=== PATIENT | male | born 1950 | race Two or more races ===

== ENCOUNTER 2018-08-06 12:45 | Inpatient (IN) | payer OTHER ==
[2018-08-06 18:40] VITALS: BMI 25.4
--- NOTE | 2018-08-06 18:48 | HP ---
"CIWA Score Nausea/Vomitin Muscle Tremors: 3 (Hand tremors felt and visible) Anxiety: 3 Agitation: 3 Paroxysmal Sweats: 3 (Increased facial moisture) Orientation: 0-Oriented Tacttile Disturbances: 0-None Auditory Disturbances: 0-None Visual Disturbances: 0-None Headache: 0-None Present CIWA-Ar Total Score: 15 - Admission Criteria [facility] Guidelines: Admission for Medically Managed Detox: Requires at least one of the followin. CIWA greater than 12 2. Seizures within the past 24 hours 3. Delirium tremens within the past 24 hours 4. Hallucinations within the past 24 hours 5. Acute intervention needed for co occurring medical disorder 6. Acute intervention needed for co occurring psychiatric disorder 7. Severe withdrawal that cannot be handled at a lower level of care (continued vomiting, continued diarrhea, abnormal vital signs) requiring intravenous medication and/or fluids 8. Patient presents the following: CIWA greater than 12 Admission Criteria Met: Admission criteria met Admission ROS S - [facility] Chief Complaint: I'm having alcohol withdrawal. Allergies/Adverse Reactions: Allergies Allergy/AdvReac Type Severity Reaction Status Date / Time No Known Allergies Allergy Verified 07/22/11 21:50 History of Present Illness: Here for alcohol detox. Came in w/ a KARINA of 0.220. Monitored in the [facility] and given water and KARINA is now 0.140. Denies hx seizures. States may have 2 blackouts years ago. States occ episodes of depression. Denies thoughts of harming self or others. Denies HTN or other significant PMH. 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 States doctors said he must use clotrimazole cream BID on feet. Psych: Talks to self but denies currently hearing voices. Is able to focus and have a conversation, but then has a flight of ideas/shifts in topics. Search Terms: Matthew Thorpe, 1950 Search Date: 08/06/2018 06:51:15 PM The Drug Utilization Report below displays all of the controlled substance prescriptions, if any, that your patient has filled in the last twelve months. The information displayed on this report is compiled from pharmacy submissions to the Department, and accurately reflects the information as submitted by the pharmacies. This report was requested by: Scarlet Trujillo | Reference #: [id number] There are no results for the search terms that you entered. Exam Limitations: No Limitations - Ebola screening Have you traveled outside of the country in the last 21 days: No (N) Have you had contact with anyone from an Ebola affected area: No Have you been sick,other than usual withdrawal symptoms: No Do you have a fever: No - Review of Systems EENT: reports: No Symptoms Reported Respiratory: reports: No Symptoms reported : reports: No Symptoms Reported Musculoskeletal: reports: No Symptoms Reported Integumentary: reports: Other (Missing toe (L) foot. States uses clotrimazole cream on feet twice a day.) Endocrine: reports: No Symptoms Reported Hematology: reports: No Symptoms Reported Psychiatric: reports: Judgement Intact, Orientated x3, Anxious, other (Talking to self.) Patient History - Patient Medical History Hx Anemia: No Hx Asthma: No Hx Chronic Obstructive Pulmonary Disease (COPD): No Hx Cancer: No Hx Cardiac Disorders: No Hx Congestive Heart Failure: No Hx Hypertension: No Hx Hypercholesterolemia: No Hx Pacemaker: No HX Cerebrovascular Accident: No Hx Seizures: No Hx Dementia: No Hx Diabetes: No Hx Gastrointestinal Disorders: No Hx Liver Disease: No Hx Genitourinary Disorders: No Hx Sexually Transmitted Disorders: No Hx Renal Disease (ESRD): No Hx Thyroid Disease: No Hx Human Immunodeficiency Virus (HIV): No Hx Hepatitis C: No Hx Depression: Yes (no meds) Hx Suicide Attempt: No Hx Schizophrenia: No - Patient Surgical History Past Surgical History: No Hx Neurologic Surgery: No Hx Cataract Extraction: No Hx Cardiac Surgery: No Hx Lung Surgery: No Hx Breast Surgery: No Hx Breast Biopsy: No Hx Abdominal Surgery: No Hx Appendectomy: No Hx Cholecystectomy: No Hx Genitourinary Surgery: No Hx Section: No Hx Orthopedic Surgery: No (incision and drainage of abscess of) Other Surgical History: left foot 15 years ago Anesthesia Reaction: No - PPD History Previous Implant?: Yes Documented Results: Negative w/o proof Implanted On Prior [facility] Admission?: Yes Date: 07/24/11 Results: Negative PPD to be Administered?: Yes - Smoking Cessation Smoking history: Current every day smoker Have you smoked in the past 12 months: Yes Aproximately how many cigarettes per day: 14 Hx Chewing Tobacco Use: No Initiated information on smoking cessation: Yes 'Breaking Loose' booklet given: 08/06/18 - Substance & Tx. History Hx Alcohol Use: Yes Hx Substance Use: Yes Substance Use Type: Alcohol Hx Substance Use Treatment: Yes (detox, rehab) - Substances Abused Alcohol Route: Oral Frequency: Daily Amount used: 3 PINTS VODKA + 6 PACK BEER Age of first use: 39 Date of Last Use: 08/06/18 Admission Physical Exam [facility] - Vital Signs Vital Signs: Vital Signs - 24 hr 08/06/18 18:34 Temperature 98.6 F Pulse Rate 92 H Respiratory 18 Rate Blood Pressure 118/102 H - Physical General Appearance: Yes: Alcohol on Breath, Intoxicated (Came in w/ KARINA 0.220 monitored and now KARINA), Irritable, Sweating (Increased facial moisture), Anxious HEENTM: Yes: EOMI (Jerking movement of eyes upon (L) lateral gaze), Hearing grossly Normal Respiratory: Yes: Lungs Clear, Normal Breath Sounds, No Respiratory Distress Neck: Yes: No masses,lesions,Nodules, Supple Breast: Yes: Breast Exam Deferred Cardiology: Yes: Regular Rhythm, Regular Rate, S1, S2 Abdominal: Yes: Non Tender, Soft, Increased Bowel Sounds Genitourinary: Yes: Within Normal Limits Back: Yes: Normal Inspection Musculoskeletal: Yes: full range of Motion, Gait Steady, Other ((L) foot 4th toe absent. 5th toe in shifted position.) Extremities: Yes: Normal Capillary Refill (Pedal and radial pulses present.), Normal Range of Motion, Non-Tender, Tremors (Tremors felt and slightly visible) Neurological: Yes: turning lathe tender II-XII NML intact (Jerking movement of eyes upon (L) lateral gaze), Fully Oriented, Alert, Motor Strength 5/5, Normal Mood/Affect Integumentary: Yes: Normal Color, Dry, Warm, Moist (Feet w/ increased moisture.) , Other (Dry thickened, spotted, darker, skin on dorsum of feet.) Lymphatic: Yes: Within Normal Limits - Diagnostic (1) Alcohol dependence with uncomplicated withdrawal Current Visit: Yes Status: Acute (2) Blood pressure elevated without history of HTN Current Visit: Yes Status: Acute (3) Acquired absence of other toe(s), unspecified side Current Visit: Yes Status: Chronic Comment: Missing (L) 4th toe. 5th toe in adjusted position. (4) Tinea pedis Current Visit: Yes Status: Chronic Qualifiers: Laterality: bilateral Qualified Code(s): B35.3 - Tinea pedis (5) Nicotine dependence, uncomplicated Current Visit: Yes Status: Chronic Qualifiers: Nicotine product type: cigarettes Qualified Code(s): F17.210 - Nicotine dependence, cigarettes, uncomplicated Cleared for Admission [facility] - Detox or Rehab [facility] Level of Care: Medically Managed Detox Regimen/Protocol: Librium S Breath Alcohol Content Breath Alcohol Content: 0.220 Urine Drug Screen - Results Drug Screen Negative: Yes"
[2018-08-06] MEDS ORDERED: LOPERAMIDE HCL 2 MG CAPSULE PO PRN (21:32)
[2018-08-06] MEDS ORDERED: P-EPHED 60MG/TRIPROLIDI 2.5MG TABLET PO PRN (21:32)
[2018-08-06] MEDS ORDERED: MAG HYDROX/AL HYDROX/SIMETH 30 ML UNIT-DOSE CUP PO PRN (21:32)
[2018-08-06] MEDS ORDERED: IBUPROFEN 400 MG TABLET (FP) PO PRN (21:32)
[2018-08-06] MEDS ORDERED: guaiFENesin/D-METHORPHAN HB 10 ML UNIT-DOSE CUPS PO PRN (21:32)
[2018-08-06] MEDS ORDERED: MENTHOL/PHENOL 1 EACH UD MM PRN (21:32)
[2018-08-06] MEDS ORDERED: chlordiazePOXIDE HCL 25 MG CAPSULE PO PRN (21:32)
[2018-08-06] MEDS ORDERED: ACETAMINOPHEN 325 MG TABLET (FP) PO PRN (21:32)
[2018-08-06] MEDS ORDERED: MAGNESIUM CITRATE 300 ML BOTTLE PO PRN (21:32)
[2018-08-06] MEDS ORDERED: MAGNESIUM HYDROX 2400MG/30ML ORAL SUSPENSION 30 ML CUP PO PRN (21:32)
[2018-08-06] MEDS ORDERED: MELATONIN 5 MG TABLETS PO PRN (22:00)
[2018-08-06] MEDS: chlordiazePOXIDE HCL 25 MG CAPSULE PO SCH (22:19)
[2018-08-06] MEDS: THIAMINE HCL 100 MG TABLET (FP) PO SCH (22:19)
[2018-08-06] MEDS: CLOTRIMAZOLE 1% CREAM 15 GM TUBE TP SCH (23:03)
[2018-08-07] MEDS: chlordiazePOXIDE HCL 25 MG CAPSULE PO SCH ×4 (05:48→22:22)
[2018-08-07 09:42] LABS: HEMATOCRIT 39.3 % (35.4-49); HEMOGLOBIN 13.7 GM/dL (11.7-16.9); MCH 34.1 pg (25.7-33.7); MCHC 34.8 g/dl (32.0-35.9); MEAN CELL VOLUME 97.9 fl (80-96); MEAN PLT VOLUME 7.9 fl (7.5-11.1); PLATELET COUNT 134 K/MM3 (134-434); RBC 4.02 M/mm3 (4.00-5.60); RDW 13.5 % (11.9-15.9); WHITE BLOOD COUNT 4.3 K/mm3 (4.0-10.0)
--- NOTE | 2018-08-07 09:59 | PN ---
S CIWA - CIWA Score Nausea/Vomitin-Mild Nausea/No Vomiting Muscle Tremors: 3 Anxiety: 3 Agitation: 3 Paroxysmal Sweats: 1-Minimal Palms Moist Orientation: 0-Oriented Tacttile Disturbances: 1-Very Mild Itch/Numbness Auditory Disturbances: 0-None Visual Disturbances: 0-None Headache: 2-Mild CIWA-Ar Total Score: 14 BHS Progress Note (SOAP) Subjective: tremor sweating itchy skin Objective: 08/07/18 09:59 Vital Signs Temperature 97.6 F 08/07/18 09:24 Pulse Rate 104 H 08/07/18 09:24 Respiratory Rate 18 08/07/18 09:24 Blood Pressure 142/80 08/07/18 09:24 O2 Sat by Pulse Oximetry (%) Laboratory Last Values WBC 4.3 K/mm3 (4.0-10.0) 08/07/18 07:00 RBC 4.02 M/mm3 (4.00-5.60) 08/07/18 07:00 Hgb 13.7 GM/dL (11.7-16.9) 08/07/18 07:00 Hct 39.3 % (35.4-49) 08/07/18 07:00 MCV 97.9 fl (80-96) H 08/07/18 07:00 MCH 34.1 pg (25.7-33.7) H 08/07/18 07:00 MCHC 34.8 g/dl (32.0-35.9) 08/07/18 07:00 RDW 13.5 % (11.9-15.9) 08/07/18 07:00 Plt Count 134 K/MM3 (134-434) 08/07/18 07:00 MPV 7.9 fl (7.5-11.1) D 08/07/18 07:00 lab noted Assessment: 08/07/18 09:59 withdrawal sx Plan: continue detox
[2018-08-07 10:05] LABS: ALBUMIN 3.7 g/dl (3.4-5.0); ALK PHOS 110 U/L (45-117); ANION GAP 9 MMOL/L (8-16); BILIRUBIN,TOTAL 0.9 mg/dL (0.2-1); BLOOD UREA NITROGEN 20 mg/dL (7-18); CALCIUM 8.7 mg/dL (8.5-10.1); CHLORIDE 105 mmol/L (98-107); CO2 27 mmol/L (21-32); GLUCOSE,RANDOM 122 mg/dL (74-106); POTASSIUM 3.6 mmol/L (3.5-5.1); SGOT/AST 113 U/L (15-37); SGPT/ALT 114 U/L (13-61); SODIUM 140 mmol/L (136-145); TOT PROT 7.1 g/dl (6.4-8.2)
[2018-08-07] MEDS: PRENATAL VITAMINS W/ FOLIC ACID TABLET (FP) PO SCH (10:09)
--- NOTE | 2018-08-07 11:25 | CONSULT ---
[facility] Psychiatric Consult - Data Date of interview: 08/07/18 Admission source: [facility] Identifying data: This is a 68 years old male, single father of one, ambulating with cane, living [facility] prison, on SSI support, with long history of chronic Alcoholism, reports Alcohol withdrawal symptoms and seeking detox Substance Abuse History: Smoking history: Current every day smoker. Have you smoked in the past 12 months: Yes. Aproximately how many cigarettes per day: 14. Hx Chewing Tobacco Use: No. Initiated information on smoking cessation: Yes. 'Breaking Loose' booklet given: 08/06/18. - Substance & Tx. History. Hx Alcohol Use: Yes. Hx Substance Use: Yes. Substance Use Type: Alcohol. Hx Substance Use Treatment: Yes (detox, rehab). - Substances Abused. Alcohol. Route: Oral. Frequency: Daily. Amount used: 3 PINTS VODKA + 6 PACK BEER. Age of first use: 39. Date of Last Use: 08/06/18 Medical History: HTN, S/P right foot surgery Psychiatric History: Patient reports history of depression and anxiety, reports outpatient management long time ago, currently he is not taking psychiatric medications, reports no psychiatric hospitalization history, no suicidal, homicidal history as well. Physical/Sexual Abuse/Trauma History: Denies Additional Comment: Observation. Detox Unit Care Protocol Mental Status Exam - Mental Status Exam Alert and Oriented to: Person Cognitive Function: Fair Patient Appearance: Well Groomed Mood: Apprehensive Affect: Mood Congruent Patient Behavior: Cooperative Speech Pattern: Appropriate Voice Loudness: Mildly Soft/Quiet Thought Process: Goal Oriented Thought Disorder: Being Controlled Hallucinations: Denies Suicidal Ideation: Denies Homicidal Ideation: Denies Insight/Judgement: Fair Sleep: Difficulty falling asleep Appetite: Weight gain Muscle strength/Tone: Mild Hypotonicity Gait/Station: Deferred Additional Comments: Observation. Detox Unit Care Protocol Psychiatric Findings - Problem List ([place] 1, 2,3) (1) Status post right foot surgery Current Visit: Yes Status: Acute (2) Alcohol dependence with uncomplicated withdrawal Current Visit: Yes Status: Acute (3) Blood pressure elevated without history of HTN Current Visit: Yes Status: Acute (4) Acquired absence of other toe(s), unspecified side Current Visit: Yes Status: Chronic Comment: Missing (L) 4th toe. 5th toe in adjusted position. (5) Nicotine dependence, uncomplicated Current Visit: Yes Status: Chronic Qualifiers: Nicotine product type: cigarettes Qualified Code(s): F17.210 - Nicotine dependence, cigarettes, uncomplicated - Initial Treatment Plan Initial Treatment Plan: Observation. Detox Unit Care Protocol
[2018-08-07] MEDS: MINERAL OIL/PETROLAT/WATER TOPICAL CREAM 113 GM JAR TP SCH (12:29)
[2018-08-07] MEDS: CLOTRIMAZOLE 1% CREAM 15 GM TUBE TP SCH ×2 (12:29→22:21)
[2018-08-07] MEDS: THIAMINE HCL 100 MG TABLET (FP) PO SCH (22:21)
[2018-08-08] MEDS: chlordiazePOXIDE HCL 25 MG CAPSULE PO SCH ×3 (05:20→17:19)
--- NOTE | 2018-08-08 09:39 | PN ---
S CIWA - CIWA Score Nausea/Vomitin-Mild Nausea/No Vomiting Muscle Tremors: 3 Anxiety: 2 Agitation: 2 Paroxysmal Sweats: 1-Minimal Palms Moist Orientation: 0-Oriented Tacttile Disturbances: 0-None Auditory Disturbances: 0-None Visual Disturbances: 0-None Headache: 1-Very Mild CIWA-Ar Total Score: 10 S Progress Note (SOAP) Subjective: tremor sweating restlessness anxiety Objective: 08/08/18 09:35 Vital Signs Temperature 96.5 F L 08/08/18 09:06 Pulse Rate 62 08/08/18 09:06 Respiratory Rate 18 08/08/18 09:06 Blood Pressure 123/77 08/08/18 09:06 O2 Sat by Pulse Oximetry (%) Laboratory Last Values WBC 4.3 K/mm3 (4.0-10.0) 08/07/18 07:00 RBC 4.02 M/mm3 (4.00-5.60) 08/07/18 07:00 Hgb 13.7 GM/dL (11.7-16.9) 08/07/18 07:00 Hct 39.3 % (35.4-49) 08/07/18 07:00 MCV 97.9 fl (80-96) H 08/07/18 07:00 MCH 34.1 pg (25.7-33.7) H 08/07/18 07:00 MCHC 34.8 g/dl (32.0-35.9) 08/07/18 07:00 RDW 13.5 % (11.9-15.9) 08/07/18 07:00 Plt Count 134 K/MM3 (134-434) 08/07/18 07:00 MPV 7.9 fl (7.5-11.1) D 08/07/18 07:00 Sodium 140 mmol/L (136-145) 08/07/18 07:00 Potassium 3.6 mmol/L (3.5-5.1) 08/07/18 07:00 Chloride 105 mmol/L (98-107) 08/07/18 07:00 Carbon Dioxide 27 mmol/L (21-32) 08/07/18 07:00 Anion Gap 9 MMOL/L (8-16) 08/07/18 07:00 BUN 20 mg/dL (7-18) H 08/07/18 07:00 Creatinine 1.0 mg/dL (0.55-1.3) 08/07/18 07:00 Creat Clearance w eGFR > 60 (>60) 08/07/18 07:00 Random Glucose 122 mg/dL (74-106) H 08/07/18 07:00 Calcium 8.7 mg/dL (8.5-10.1) 08/07/18 07:00 Total Bilirubin 0.9 mg/dL (0.2-1) 08/07/18 07:00 AST 113 U/L (15-37) H 08/07/18 07:00 ALT 114 U/L (13-61) H 08/07/18 07:00 Alkaline Phosphatase 110 U/L (45-117) 08/07/18 07:00 Total Protein 7.1 g/dl (6.4-8.2) 08/07/18 07:00 Albumin 3.7 g/dl (3.4-5.0) 08/07/18 07:00 RPR Titer Nonreactive (NONREACTIVE) 08/07/18 07:00 lab noted repeat ast Assessment: 08/08/18 09:39 withdrawal sx Plan: continue detox
[2018-08-08] MEDS: MINERAL OIL/PETROLAT/WATER TOPICAL CREAM 113 GM JAR TP SCH (10:14)
[2018-08-08] MEDS: PRENATAL VITAMINS W/ FOLIC ACID TABLET (FP) PO SCH (10:14)
[2018-08-08] MEDS: CLOTRIMAZOLE 1% CREAM 15 GM TUBE TP SCH ×2 (10:14→22:32)
[2018-08-08] MEDS: THIAMINE HCL 100 MG TABLET (FP) PO SCH (22:28)
[2018-08-08] MEDS: chlordiazePOXIDE 5 MG CAPSULE PO SCH (22:28)
[2018-08-09] MEDS: chlordiazePOXIDE 5 MG CAPSULE PO SCH ×3 (05:15→17:40)
[2018-08-09] MEDS: PRENATAL VITAMINS W/ FOLIC ACID TABLET (FP) PO SCH (10:16)
[2018-08-09] MEDS: CLOTRIMAZOLE 1% CREAM 15 GM TUBE TP SCH ×2 (10:16→22:25)
[2018-08-09] MEDS: MINERAL OIL/PETROLAT/WATER TOPICAL CREAM 113 GM JAR TP SCH (10:16)
--- NOTE | 2018-08-09 10:39 | PN ---
[facility] Progress Note (SOAP) Subjective: feeling better less tremor mild sweating discuss aftercare with staff social with peers in day room Objective: 08/09/18 10:38 Vital Signs Temperature 97.6 F 08/09/18 09:13 Pulse Rate 60 08/09/18 09:13 Respiratory Rate 18 08/09/18 09:13 Blood Pressure 107/70 08/09/18 09:13 O2 Sat by Pulse Oximetry (%) Laboratory Last Values WBC 4.3 K/mm3 (4.0-10.0) 08/07/18 07:00 RBC 4.02 M/mm3 (4.00-5.60) 08/07/18 07:00 Hgb 13.7 GM/dL (11.7-16.9) 08/07/18 07:00 Hct 39.3 % (35.4-49) 08/07/18 07:00 MCV 97.9 fl (80-96) H 08/07/18 07:00 MCH 34.1 pg (25.7-33.7) H 08/07/18 07:00 MCHC 34.8 g/dl (32.0-35.9) 08/07/18 07:00 RDW 13.5 % (11.9-15.9) 08/07/18 07:00 Plt Count 134 K/MM3 (134-434) 08/07/18 07:00 MPV 7.9 fl (7.5-11.1) D 08/07/18 07:00 Sodium 140 mmol/L (136-145) 08/07/18 07:00 Potassium 3.6 mmol/L (3.5-5.1) 08/07/18 07:00 Chloride 105 mmol/L (98-107) 08/07/18 07:00 Carbon Dioxide 27 mmol/L (21-32) 08/07/18 07:00 Anion Gap 9 MMOL/L (8-16) 08/07/18 07:00 BUN 20 mg/dL (7-18) H 08/07/18 07:00 Creatinine 1.0 mg/dL (0.55-1.3) 08/07/18 07:00 Creat Clearance w eGFR > 60 (>60) 08/07/18 07:00 Random Glucose 122 mg/dL (74-106) H 08/07/18 07:00 Calcium 8.7 mg/dL (8.5-10.1) 08/07/18 07:00 Total Bilirubin 0.9 mg/dL (0.2-1) 08/07/18 07:00 AST 113 U/L (15-37) H 08/07/18 07:00 ALT 114 U/L (13-61) H 08/07/18 07:00 Alkaline Phosphatase 110 U/L (45-117) 08/07/18 07:00 Total Protein 7.1 g/dl (6.4-8.2) 08/07/18 07:00 Albumin 3.7 g/dl (3.4-5.0) 08/07/18 07:00 RPR Titer Nonreactive (NONREACTIVE) 08/07/18 07:00 lab noted repeat ast pending 08/09/18 10:40 Assessment: 08/09/18 10:41 mild withdrawal sx Plan: continue detox
[2018-08-09 12:54] LABS: URINE APPEARANCE CLEAR; URINE BILIRUBIN NEGATIVE (<2.0 mg/dL); URINE COLOR LTYELLOW; URINE GLUCOSE (UA) NEGATIVE (NEGATIVE); URINE KETONE NEGATIVE (NEGATIVE); URINE LEUK ESTERASE NEGATIVE (NEGATIVE); URINE NITRITE NEGATIVE (NEGATIVE); URINE PROTEIN NEGATIVE (NEGATIVE); URINE UROBILINOGEN NEGATIVE mg/dL (0.2-1.0)
[2018-08-09] MEDS: chlordiazePOXIDE HCL 10 MG CAPSULE PO SCH (22:25)
[2018-08-09] MEDS: THIAMINE HCL 100 MG TABLET (FP) PO SCH (22:25)
[2018-08-10] MEDS: chlordiazePOXIDE HCL 10 MG CAPSULE PO SCH (06:13)
[2018-08-10 06:32] VITALS: BP 106/77; PULSE 77; TEMP 96.4
--- NOTE | 2018-08-10 09:24 | DS ---
[facility] Detox Discharge Summary Admission Date: 08/06/18 Discharge Date: 08/10/18 - History Present History: Alcohol Dependence Additional Comments: 68 years old male admitted on 08/06/18 for alcohol withdrawal stabilization completed detox regimen aftercare [facility] [place] - Physical Exam Results Vital Signs: Vital Signs Temperature 96.4 F L 08/10/18 06:31 Pulse Rate 77 08/10/18 06:31 Respiratory Rate 18 08/10/18 06:31 Blood Pressure 106/77 08/10/18 06:31 O2 Sat by Pulse Oximetry (%) Pertinent Admission Physical Exam Findings: alcohol withdrawal sx Laboratory Last Values WBC 4.3 K/mm3 (4.0-10.0) 08/07/18 07:00 RBC 4.02 M/mm3 (4.00-5.60) 08/07/18 07:00 Hgb 13.7 GM/dL (11.7-16.9) 08/07/18 07:00 Hct 39.3 % (35.4-49) 08/07/18 07:00 MCV 97.9 fl (80-96) H 08/07/18 07:00 MCH 34.1 pg (25.7-33.7) H 08/07/18 07:00 MCHC 34.8 g/dl (32.0-35.9) 08/07/18 07:00 RDW 13.5 % (11.9-15.9) 08/07/18 07:00 Plt Count 134 K/MM3 (134-434) 08/07/18 07:00 MPV 7.9 fl (7.5-11.1) D 08/07/18 07:00 Sodium 140 mmol/L (136-145) 08/07/18 07:00 Potassium 3.6 mmol/L (3.5-5.1) 08/07/18 07:00 Chloride 105 mmol/L (98-107) 08/07/18 07:00 Carbon Dioxide 27 mmol/L (21-32) 08/07/18 07:00 Anion Gap 9 MMOL/L (8-16) 08/07/18 07:00 BUN 20 mg/dL (7-18) H 08/07/18 07:00 Creatinine 1.0 mg/dL (0.55-1.3) 08/07/18 07:00 Creat Clearance w eGFR > 60 (>60) 08/07/18 07:00 Random Glucose 122 mg/dL (74-106) H 08/07/18 07:00 Calcium 8.7 mg/dL (8.5-10.1) 08/07/18 07:00 Total Bilirubin 0.9 mg/dL (0.2-1) 08/07/18 07:00 AST 121 U/L (15-37) H 08/09/18 07:00 ALT 114 U/L (13-61) H 08/07/18 07:00 Alkaline Phosphatase 110 U/L (45-117) 08/07/18 07:00 Total Protein 7.1 g/dl (6.4-8.2) 08/07/18 07:00 Albumin 3.7 g/dl (3.4-5.0) 08/07/18 07:00 Urine Color Ltyellow 08/09/18 07:50 Urine Appearance Clear 08/09/18 07:50 Urine pH 5.0 (5.0-8.0) 08/09/18 07:50 Ur Specific [place] 1.014 (1.010-1.035) 08/09/18 07:50 Urine Protein Negative (NEGATIVE) 08/09/18 07:50 Urine Glucose (UA) Negative (NEGATIVE) 08/09/18 07:50 Urine Ketones Negative (NEGATIVE) 08/09/18 07:50 Urine Blood Negative (NEGATIVE) 08/09/18 07:50 Urine Nitrite Negative (NEGATIVE) 08/09/18 07:50 Urine Bilirubin Negative (<2.0 mg/dL) 08/09/18 07:50 Urine Urobilinogen Negative mg/dL (0.2-1.0) 08/09/18 07:50 Ur Leukocyte Esterase Negative (NEGATIVE) 08/09/18 07:50 RPR Titer Nonreactive (NONREACTIVE) 08/07/18 07:00 lab noted - Treatment Hospital Course: Detox Protocol Followed, Detoxed Safely, Responded well, Discharged Condition Good, Rehab Referral Accepted Patient has Accepted a Rehab Referral to: [facility] [place] - Medication Discharge Medications: Ambulatory Orders No Home Medications 12/25/11 - Diagnosis (1) Alcohol dependence with uncomplicated withdrawal Current Visit: Yes Status: Acute (2) Nicotine dependence, uncomplicated Current Visit: Yes Status: Acute Qualifiers: Nicotine product type: cigarettes Qualified Code(s): F17.210 - Nicotine dependence, cigarettes, uncomplicated - AMA Did Patient Leave Against Medical Advice: No
== END 2018-08-10 08:35 | disposition home or self-care (01) | DRG 775 ==
LOC: YASAS 12:45 → Y3N 20:11
PROVIDERS: ADMIT Neuromusculoskeletal Medicine & OMM; ATTEND Neuromusculoskeletal Medicine & OMM
PROC: HZ2ZZZZ Detoxification Services for Substance Abuse Treatment (ICD-10-PCS; principal; 2018-08-06)
DX: F10.230 Alcohol dependence with withdrawal, uncomplicated (principal); F17.210 Nicotine dependence, cigarettes, uncomplicated; R03.0 Elevated blood-pressure reading, without diagnosis of hypertension; B35.3 Tinea pedis; Z89.422 Acquired absence of other left toe(s)
CPT/HCPCS: 36415; 80053; 81003; 84450; 85027; 86593

== ENCOUNTER 2018-10-29 13:36 | Inpatient (IN) | payer OTHER ==
[2018-10-29 14:21] VITALS: BMI 25.7
--- NOTE | 2018-10-29 14:33 | HP ---
"CIWA Score Nausea/Vomitin Muscle Tremors: 4-Moderate,w/Arms Extend Anxiety: 3 Agitation: 4-Moderately Restless Paroxysmal Sweats: 3 (increased facial moisture) Orientation: 0-Oriented Tacttile Disturbances: 0-None Auditory Disturbances: 0-None Visual Disturbances: 0-None Headache: 0-None Present CIWA-Ar Total Score: 17 - Admission Criteria OASAS Guidelines: Admission for Medically Managed Detox: Requires at least one of the followin. CIWA greater than 12 2. Seizures within the past 24 hours 3. Delirium tremens within the past 24 hours 4. Hallucinations within the past 24 hours 5. Acute intervention needed for co occurring medical disorder 6. Acute intervention needed for co occurring psychiatric disorder 7. Severe withdrawal that cannot be handled at a lower level of care (continued vomiting, continued diarrhea, abnormal vital signs) requiring intravenous medication and/or fluids 8. Patient presents the following: CIWA greater than 12 Admission Criteria Met: Admission criteria met Admission ROS [facility] Chief Complaint: Here for alcohol withdrawal. Allergies/Adverse Reactions: Allergies Allergy/AdvReac Type Severity Reaction Status Date / Time No Known Allergies Allergy Verified 07/22/11 21:50 History of Present Illness: Here for alcohol detox. Last detox 07/2018. Came in w/ a KARINA of 0.220. Denies hx seizures. States may have 2 blackouts years ago. 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 Denies thoughts of harming self or others. Is able to focus and have a conversation, but then has scattered thoughts/ shifts in topics. Search Terms: Matthew Thorpe, 1950 Search Date: 10/29/2018 03:19:59 PM The Drug Utilization Report below displays all of the controlled substance prescriptions, if any, that your patient has filled in the last twelve months. The information displayed on this report is compiled from pharmacy submissions to the Department, and accurately reflects the information as submitted by the pharmacies. This report was requested by: Scarlet Trujillo | Reference #: [id number] There are no results for the search terms that you entered. Exam Limitations: No Limitations - Ebola screening Have you traveled outside of the country in the last 21 days: No (N) Have you had contact with anyone from an Ebola affected area: No Have you been sick,other than usual withdrawal symptoms: No (Denies recent measles exposure) Do you have a fever: No - Review of Systems Constitutional: Diaphoresis EENT: reports: Blurred Vision Respiratory: reports: No Symptoms reported Cardiac: reports: No Symptoms Reported GI: reports: Nausea : reports: No Symptoms Reported Musculoskeletal: reports: Back Pain (pain in mornings), Joint Pain (Knee pain in mornings), Other (Missing 4th toe (L) foot) Integumentary: reports: Rash (Chest) Neuro: reports: No Symptoms reported Endocrine: reports: No Symptoms Reported Hematology: reports: Other (Varicose veins, venous stasis) Psychiatric: reports: Judgement Intact, Orientated x3, Agitated, Anxious Patient History - Patient Medical History Hx Anemia: No Hx Asthma: No Hx Chronic Obstructive Pulmonary Disease (COPD): No Hx Cancer: No Hx Cardiac Disorders: No Hx Congestive Heart Failure: No Hx Hypertension: No Hx Hypercholesterolemia: No Hx Pacemaker: No HX Cerebrovascular Accident: No Hx Seizures: No Hx Dementia: No Hx Diabetes: No Hx Gastrointestinal Disorders: No Hx Liver Disease: No Hx Genitourinary Disorders: No Hx Sexually Transmitted Disorders: No Hx Renal Disease (ESRD): No Hx Thyroid Disease: No Hx Human Immunodeficiency Virus (HIV): No Hx Hepatitis C: No Hx Depression: Yes (no meds) Hx Suicide Attempt: No Hx Schizophrenia: No - Patient Surgical History Past Surgical History: No Hx Neurologic Surgery: No Hx Cataract Extraction: No Hx Cardiac Surgery: No Hx Lung Surgery: No Hx Breast Surgery: No Hx Breast Biopsy: No Hx Abdominal Surgery: No Hx Appendectomy: No Hx Cholecystectomy: No Hx Genitourinary Surgery: No Hx Section: No Hx Orthopedic Surgery: No (incision and drainage of abscess of) Other Surgical History: left foot 15 years ago Anesthesia Reaction: No - PPD History Previous Implant?: Yes Documented Results: Negative w/proof Implanted On Prior R Admission?: Yes Date: 08/08/18 Results: Negative PPD to be Administered?: No - Smoking Cessation Smoking history: Current every day smoker Have you smoked in the past 12 months: Yes Aproximately how many cigarettes per day: 15 Hx Chewing Tobacco Use: No Initiated information on smoking cessation: Yes 'Breaking Loose' booklet given: 10/29/18 - Substance & Tx. History Hx Alcohol Use: Yes Hx Substance Use: Yes Substance Use Type: Alcohol Hx Substance Use Treatment: Yes (detox, ) - Substances abused Alcohol Substance route: Oral Frequency: Daily Amount used: 20 beers and a pint of liquor Age of first use: 12 Date of last use: 10/29/18 Admission Physical Exam S - Vital Signs Vital Signs: Vital Signs - 24 hr 10/29/18 14:14 Temperature 98.6 F Pulse Rate 106 H Respiratory 18 Rate Blood Pressure 109/81 - Physical General Appearance: Yes: Nourished, Mild Distress, Tremorous, Sweating ( Increased facial moisture), Anxious HEENTM: Yes: EOMI, Hearing grossly Normal, Normocephalic, SILVIA, Pharynx Normal Respiratory: Yes: Lungs Clear, Normal Breath Sounds, No Respiratory Distress Neck: Yes: No masses,lesions,Nodules, Supple Breast: Yes: Breast Exam Deferred Cardiology: Yes: Regular Rhythm, Regular Rate Abdominal: Yes: Soft, Increased Bowel Sounds Genitourinary: Yes: Within Normal Limits Back: Yes: Normal Inspection Musculoskeletal: Yes: full range of Motion, Gait Steady Extremities: Yes: Delayed Capillary Refill (of toes), Amputation ((L) 4th toe), Other (Varicose veins w/ increased deep reddish/brownish/purplish evidence of stasis) 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 Pedal pulses (+)) Lymphatic: Yes: Within Normal Limits - Diagnostic (1) Varicose veins of bilateral lower extremities with other complications Current Visit: Yes Status: Chronic Comment: With venous stasis (2) Alcohol dependence with uncomplicated withdrawal Current Visit: Yes Status: Acute (3) Nicotine dependence, uncomplicated Current Visit: Yes Status: Chronic Qualifiers: Nicotine product type: cigarettes Qualified Code(s): F17.210 - Nicotine dependence, cigarettes, uncomplicated (4) Acquired absence of other toe(s), unspecified side Current Visit: Yes Status: Chronic Comment: Missing (L) 4th toe. 5th toe in adjusted position. (5) Tinea pedis Current Visit: Yes Status: Chronic Qualifiers: Laterality: bilateral Qualified Code(s): B35.3 - Tinea pedis (6) Dry skin Current Visit: Yes Status: Chronic Cleared for Admission [facility] - Detox or Rehab [facility] Level of Care: Medically Managed Detox Regimen/Protocol: Librium Claeared for Rehab Admission: No Inpatient Rehab Admission - Rehab Decision to Admit Inpatient rehab admission?: No"
[2018-10-29] MEDS ORDERED: BISMUTH SUBSALICYLATE 524 MG/30 ML UD PO PRN (15:21)
[2018-10-29] MEDS ORDERED: MELATONIN 5 MG TABLETS PO PRN (15:21)
[2018-10-29] MEDS ORDERED: MAGNESIUM CITRATE 300 ML BOTTLE PO PRN (15:21)
[2018-10-29] MEDS ORDERED: IBUPROFEN 400 MG TABLET (FP) PO PRN (15:21)
[2018-10-29] MEDS ORDERED: MAG HYDROX/AL HYDROX/SIMETH 30 ML UNIT-DOSE CUP PO PRN (15:21)
[2018-10-29] MEDS ORDERED: MAGNESIUM HYDROX 2400MG/30ML ORAL SUSPENSION 30 ML CUP PO PRN (15:21)
[2018-10-29] MEDS ORDERED: chlordiazePOXIDE HCL 25 MG CAPSULE PO PRN (15:21)
[2018-10-29] MEDS ORDERED: METHOCARBAMOL 500 MG TABLET PO PRN (15:21)
[2018-10-29] MEDS ORDERED: ACETAMINOPHEN 325 MG TABLET (FP) PO PRN ×2 (15:21)
[2018-10-29] MEDS ORDERED: NICOTINE POLACRILEX 2 MG GUM BUC PRN (15:21)
[2018-10-29] MEDS ORDERED: guaiFENesin 200 MG/10 ML 10 ML UNIT-DOSE CUPS PO PRN (15:21)
[2018-10-29] MEDS ORDERED: chlordiazePOXIDE HCL 25 MG CAPSULE PO ONE (15:21)
[2018-10-29] MEDS ORDERED: MENTHOL/PHENOL 1 EACH UD MM PRN (15:21)
[2018-10-29] MEDS ORDERED: AMMONIUM LACTATE 12% LOTION 225 GM BOTTLE TP PRN (15:24)
[2018-10-29 18:20] LABS: URINE APPEARANCE CLEAR; URINE BILIRUBIN NEGATIVE (NEGATIVE); URINE COLOR YELLOW; URINE GLUCOSE (UA) NEGATIVE (NEGATIVE); URINE KETONE NEGATIVE (NEGATIVE); URINE LEUK ESTERASE NEGATIVE (NEGATIVE); URINE NITRITE NEGATIVE (NEGATIVE); URINE PROTEIN NEGATIVE (NEGATIVE); URINE UROBILINOGEN 0.2 mg/dL (0.2-1.0)
[2018-10-29] MEDS: chlordiazePOXIDE HCL 25 MG CAPSULE PO SCH ×2 (20:25→22:51)
[2018-10-29] MEDS: THIAMINE HCL 100 MG TABLET (FP) PO SCH (22:51)
[2018-10-29] MEDS: CLOTRIMAZOLE 1% CREAM 15 GM TUBE TP SCH (22:53)
[2018-10-30] MEDS: chlordiazePOXIDE HCL 25 MG CAPSULE PO SCH ×4 (05:10→22:16)
[2018-10-30 09:41] LABS: HEMATOCRIT 42.9 % (35.4-49); MCH 33.3 pg (25.7-33.7); MCHC 34.9 g/dl (32.0-35.9); MEAN CELL VOLUME 95.4 fl (80-96); MEAN PLT VOLUME 8.7 fl (7.5-11.1); PLATELET COUNT 147 K/MM3 (134-434); RBC 4.49 M/mm3 (4.00-5.60); RDW 13.9 % (11.9-15.9); WHITE BLOOD COUNT 4.8 K/mm3 (4.0-10.0)
[2018-10-30 09:44] LABS: ALBUMIN 4.1 g/dl (3.4-5.0); ALK PHOS 142 U/L (45-117); ANION GAP 7 MMOL/L (8-16); BLOOD UREA NITROGEN 13 mg/dL (7-18); CALCIUM 9.5 mg/dL (8.5-10.1); CHLORIDE 104 mmol/L (98-107); CO2 30 mmol/L (21-32); CREATININE 0.8 mg/dL (0.55-1.3); GLUCOSE,RANDOM 128 mg/dL (74-106); POTASSIUM 4.2 mmol/L (3.5-5.1); SGOT/AST 108 U/L (15-37); SGPT/ALT 102 U/L (13-61); SODIUM 141 mmol/L (136-145)
--- NOTE | 2018-10-30 10:01 | EKG ---
Test Reason : Blood Pressure : / mmHG Vent. Rate : 089 BPM Atrial Rate : 089 BPM P-R Int : 176 ms QRS Dur : 090 ms QT Int : 388 ms P-R-T Axes : 011 040 037 degrees QTc Int : 472 ms NORMAL SINUS RHYTHM NORMAL ECG NO PREVIOUS ECGS AVAILABLE Confirmed by CYNTHIA FISHER MD ([id number]) on 10/30/2018 10:01:12 AM Referred By: INDRA GREEN Confirmed By:CYNTHIA FISHER MD
[2018-10-30] MEDS: NICOTINE 14 MG/24 HOURS TOPICAL PATCH TD SCH (10:19)
[2018-10-30] MEDS: CLOTRIMAZOLE 1% CREAM 15 GM TUBE TP SCH ×2 (10:19→22:18)
[2018-10-30] MEDS: PRENATAL VITAMINS W/ FOLIC ACID TABLET (FP) PO SCH (10:19)
--- NOTE | 2018-10-30 13:16 | PN ---
S CIWA - CIWA Score Nausea/Vomitin-No Nausea/No Vomiting Muscle Tremors: 4-Moderate,w/Arms Extend Anxiety: 2 Agitation: 0-Normal Activity Paroxysmal Sweats: 3 Orientation: 0-Oriented Tacttile Disturbances: 0-None Auditory Disturbances: 0-None Visual Disturbances: 0-None Headache: 0-None Present CIWA-Ar Total Score: 9 BHS Progress Note (SOAP) Subjective: patient c/o shakes, anxiety and sweating. Objective: 10/30/18 13:14 Vital Signs Temperature 97.3 F L 10/30/18 10:41 Pulse Rate 99 H 10/30/18 10:41 Respiratory Rate 18 10/30/18 10:41 Blood Pressure 117/95 10/30/18 10:41 O2 Sat by Pulse Oximetry (%) Laboratory Tests 10/29/18 10/30/18 10/30/18 17:30 07:45 07:45 WBC 4.8 RBC 4.49 Hgb 15.0 Hct 42.9 MCV 95.4 MCH 33.3 MCHC 34.9 RDW 13.9 Plt Count 147 MPV 8.7 D Sodium 141 Potassium 4.2 Chloride 104 Carbon Dioxide 30 Anion Gap 7 L BUN 13 Creatinine 0.8 Creat Clearance w eGFR 95.85 Random Glucose 128 H Calcium 9.5 Total Bilirubin 1.0 AST 108 H ALT 102 H Alkaline Phosphatase 142 H Total Protein 8.0 Albumin 4.1 Urine Color Yellow Urine Appearance Clear Urine pH 5.0 Ur Specific [place] 1.015 Urine Protein Negative Urine Glucose (UA) Negative Urine Ketones Negative Urine Blood Negative Urine Nitrite Negative Urine Bilirubin Negative Urine Urobilinogen 0.2 Ur Leukocyte Esterase Negative RPR Titer 10/30/18 07:45 WBC RBC Hgb Hct MCV MCH MCHC RDW Plt Count MPV Sodium Potassium Chloride Carbon Dioxide Anion Gap BUN Creatinine Creat Clearance w eGFR Random Glucose Calcium Total Bilirubin AST ALT Alkaline Phosphatase Total Protein Albumin Urine Color Urine Appearance Urine pH Ur Specific [place] Urine Protein Urine Glucose (UA) Urine Ketones Urine Blood Urine Nitrite Urine Bilirubin Urine Urobilinogen Ur Leukocyte Esterase RPR Titer Nonreactive pe: alert and oriented x 3 skin warm, facial moisture ext no swelling, + tremors amb ad becca mildly anxious Assessment: 10/30/18 13:15 withdrawal sx Plan: continue detox encourage oral fluids monitor clinically
[2018-10-30] MEDS: THIAMINE HCL 100 MG TABLET (FP) PO SCH (22:16)
[2018-10-31] MEDS: chlordiazePOXIDE HCL 25 MG CAPSULE PO SCH ×2 (06:07→10:23)
[2018-10-31] MEDS: CLOTRIMAZOLE 1% CREAM 15 GM TUBE TP SCH ×2 (10:22→22:09)
[2018-10-31] MEDS: PRENATAL VITAMINS W/ FOLIC ACID TABLET (FP) PO SCH (10:22)
[2018-10-31] MEDS: NICOTINE 14 MG/24 HOURS TOPICAL PATCH TD SCH (10:23)
--- NOTE | 2018-10-31 13:48 | PN ---
[facility] CIWA - CIWA Score Nausea/Vomitin-No Nausea/No Vomiting Muscle Tremors: 3 Anxiety: 2 Agitation: 2 Paroxysmal Sweats: 2 Orientation: 0-Oriented Tacttile Disturbances: 0-None Auditory Disturbances: 0-None Visual Disturbances: 0-None Headache: 0-None Present CIWA-Ar Total Score: 9 BHS Progress Note (SOAP) Subjective: agitation sweats interrupted sleep dry skin Objective: 10/31/18 13:46 Vital Signs Temperature 97.5 F L 10/31/18 13:15 Pulse Rate 67 10/31/18 13:15 Respiratory Rate 18 10/31/18 13:15 Blood Pressure 124/81 10/31/18 13:15 O2 Sat by Pulse Oximetry (%) Laboratory Tests 10/29/18 10/30/18 10/30/18 17:30 07:45 07:45 WBC 4.8 RBC 4.49 Hgb 15.0 Hct 42.9 MCV 95.4 MCH 33.3 MCHC 34.9 RDW 13.9 Plt Count 147 MPV 8.7 D Sodium 141 Potassium 4.2 Chloride 104 Carbon Dioxide 30 Anion Gap 7 L BUN 13 Creatinine 0.8 Creat Clearance w eGFR 95.85 Random Glucose 128 H Calcium 9.5 Total Bilirubin 1.0 AST 108 H ALT 102 H Alkaline Phosphatase 142 H Total Protein 8.0 Albumin 4.1 Urine Color Yellow Urine Appearance Clear Urine pH 5.0 Ur Specific [place] 1.015 Urine Protein Negative Urine Glucose (UA) Negative Urine Ketones Negative Urine Blood Negative Urine Nitrite Negative Urine Bilirubin Negative Urine Urobilinogen 0.2 Ur Leukocyte Esterase Negative RPR Titer 10/30/18 07:45 WBC RBC Hgb Hct MCV MCH MCHC RDW Plt Count MPV Sodium Potassium Chloride Carbon Dioxide Anion Gap BUN Creatinine Creat Clearance w eGFR Random Glucose Calcium Total Bilirubin AST ALT Alkaline Phosphatase Total Protein Albumin Urine Color Urine Appearance Urine pH Ur Specific [place] Urine Protein Urine Glucose (UA) Urine Ketones Urine Blood Urine Nitrite Urine Bilirubin Urine Urobilinogen Ur Leukocyte Esterase RPR Titer Nonreactive aaox3 ambulating no acute distress elevated ast/alt d/c tylenol repeat labs Assessment: 10/31/18 13:47 withdrawal sx Plan: continue detox increase fluids pending repeated labs
[2018-10-31] MEDS ORDERED: chlordiazePOXIDE HCL 10 MG CAPSULE PO PRN (17:00)
[2018-10-31] MEDS: chlordiazePOXIDE HCL 10 MG CAPSULE PO SCH ×2 (17:26→22:06)
[2018-10-31] MEDS: THIAMINE HCL 100 MG TABLET (FP) PO SCH (22:06)
[2018-11-01] MEDS: chlordiazePOXIDE HCL 10 MG CAPSULE PO SCH ×3 (05:46→17:49)
[2018-11-01] MEDS: PRENATAL VITAMINS W/ FOLIC ACID TABLET (FP) PO SCH (10:29)
[2018-11-01] MEDS: NICOTINE 14 MG/24 HOURS TOPICAL PATCH TD SCH (10:30)
[2018-11-01] MEDS: CLOTRIMAZOLE 1% CREAM 15 GM TUBE TP SCH ×2 (10:31→22:38)
--- NOTE | 2018-11-01 11:33 | PN ---
S CIWA - CIWA Score Nausea/Vomitin-No Nausea/No Vomiting Muscle Tremors: 2 Anxiety: 1-Mildly Anxious Agitation: 1-Slight > Activity Paroxysmal Sweats: No Perspiration Orientation: 0-Oriented Tacttile Disturbances: 0-None Auditory Disturbances: 0-None Visual Disturbances: 0-None Headache: 0-None Present CIWA-Ar Total Score: 4 BHS Progress Note (SOAP) Subjective: anxiety I need to leave tomorrow early to make it to my vascular doctor in the [place] Objective: 11/01/18 11:32 Vital Signs Temperature 97.9 F 11/01/18 10:32 Pulse Rate 66 11/01/18 10:32 Respiratory Rate 18 11/01/18 10:32 Blood Pressure 113/60 11/01/18 10:32 O2 Sat by Pulse Oximetry (%) Laboratory Tests 10/29/18 10/30/18 10/30/18 17:30 07:45 07:45 WBC 4.8 RBC 4.49 Hgb 15.0 Hct 42.9 MCV 95.4 MCH 33.3 MCHC 34.9 RDW 13.9 Plt Count 147 MPV 8.7 D Sodium 141 Potassium 4.2 Chloride 104 Carbon Dioxide 30 Anion Gap 7 L BUN 13 Creatinine 0.8 Creat Clearance w eGFR 95.85 Random Glucose 128 H Calcium 9.5 Total Bilirubin 1.0 AST 108 H ALT 102 H Alkaline Phosphatase 142 H Total Protein 8.0 Albumin 4.1 Urine Color Yellow Urine Appearance Clear Urine pH 5.0 Ur Specific [place] 1.015 Urine Protein Negative Urine Glucose (UA) Negative Urine Ketones Negative Urine Blood Negative Urine Nitrite Negative Urine Bilirubin Negative Urine Urobilinogen 0.2 Ur Leukocyte Esterase Negative RPR Titer 10/30/18 07:45 WBC RBC Hgb Hct MCV MCH MCHC RDW Plt Count MPV Sodium Potassium Chloride Carbon Dioxide Anion Gap BUN Creatinine Creat Clearance w eGFR Random Glucose Calcium Total Bilirubin AST ALT Alkaline Phosphatase Total Protein Albumin Urine Color Urine Appearance Urine pH Ur Specific [place] Urine Protein Urine Glucose (UA) Urine Ketones Urine Blood Urine Nitrite Urine Bilirubin Urine Urobilinogen Ur Leukocyte Esterase RPR Titer Nonreactive repeated liver enzymes pending aaox3 ambulating no acute distress Assessment: 11/01/18 11:33 withdrawal sx Plan: continue detox increase fluids d/c in am
[2018-11-01 12:11] LABS: SGOT/AST 90 U/L (15-37); SGPT/ALT 91 U/L (13-61)
[2018-11-01] MEDS ORDERED: LACTULOSE 20 GM/30 ML UDC (FOR ORAL USE ONLY) PO ONE (15:20)
--- NOTE | 2018-11-01 15:22 | PN ---
S Progress Note Note: pt was having moments of confusion and rambling on stories that were not pertinent of his purpose for detox. ammonia level ordered; result 49.10. laculose 20meq tid ordered x one day. will follow up and re-evaluate his mental status.
[2018-11-01] MEDS: LACTULOSE 20 GM/30 ML UDC (FOR ORAL USE ONLY) PO SCH (22:36)
[2018-11-01] MEDS: THIAMINE HCL 100 MG TABLET (FP) PO SCH (22:36)
[2018-11-02 06:16] VITALS: BP 142/87; PULSE 64; TEMP 98.6
[2018-11-02] MEDS: LACTULOSE 20 GM/30 ML UDC (FOR ORAL USE ONLY) PO SCH (07:23)
[2018-11-02] MEDS: chlordiazePOXIDE HCL 10 MG CAPSULE PO SCH (07:23)
--- NOTE | 2018-11-02 08:55 | DS ---
[facility] Detox Discharge Summary Admission Date: 10/29/18 Discharge Date: 11/02/18 - History Present History: Alcohol Dependence - Physical Exam Results Vital Signs: Vital Signs Temperature 98.6 F 11/02/18 06:16 Pulse Rate 64 11/02/18 06:16 Respiratory Rate 18 11/02/18 06:16 Blood Pressure 142/87 11/02/18 06:16 O2 Sat by Pulse Oximetry (%) - Treatment Hospital Course: Detox Protocol Followed, Detoxed Safely, Responded well, Discharged Condition Good, Rehab Referral Accepted - Medication Discharge Medications: Ambulatory Orders Ammonium Lactate Cream [Lac-Hydrin 12% *Cream*] 1 applic TP BID 10/29/18 Clotrimazole 1 applic TP BID 10/29/18 - AMA Did Patient Leave Against Medical Advice: No (pt declined; going to see his vascular MD)
== END 2018-11-02 07:48 | disposition home or self-care (01) | DRG 897 ==
LOC: YASAS 13:36 → Y6N 15:01
PROVIDERS: ADMIT Surgery; ATTEND Surgery
PROC: HZ2ZZZZ Detoxification Services for Substance Abuse Treatment (ICD-10-PCS; principal; 2018-10-29)
DX: F10.230 Alcohol dependence with withdrawal, uncomplicated (principal); F17.210 Nicotine dependence, cigarettes, uncomplicated; I83.93 Asymptomatic varicose veins of bilateral lower extremities; L98.8 Other specified disorders of the skin and subcutaneous tissue; B35.3 Tinea pedis; Z89.422 Acquired absence of other left toe(s)
CPT/HCPCS: 36415; 80053; 81003; 82140; 84450; 84460; 85027; 86593; 93005; 93010

== ENCOUNTER 2019-09-15 12:33 | Inpatient (IN) | payer OTHER ==
[2019-09-15 13:19] VITALS: BMI 25.8
--- NOTE | 2019-09-15 15:02 | BHS.RME ---
Substance Use & Tx History - Substance Use History Alcohol Substance amount: Bacardi/beer Frequency of use: Daily Substance route: Oral Date of Last Use: 09/15/19 - Last Treatment Date of last treatment: 10/29/2018 Treatment type: Medical Where was last treatment: Detox
--- NOTE | 2019-09-15 15:02 | HP ---
CIWA Score Nausea/Vomitin Muscle Tremors: 2 Anxiety: 1-Mildly Anxious Agitation: 1-Slight > Activity Paroxysmal Sweats: 1-Minimal Palms Moist Orientation: 1-Uncertain about Date Tacttile Disturbances: 2-Mild Itch/Numbness/Burn Auditory Disturbances: 1-Very Mild Visual Disturbances: 1-Very Mild Sensitivity Headache: 1-Very Mild CIWA-Ar Total Score: 13 - Admission Criteria OASAS Guidelines: Admission for Medically Managed Detox: Requires at least one of the followin. CIWA greater than 12 2. Seizures within the past 24 hours 3. Delirium tremens within the past 24 hours 4. Hallucinations within the past 24 hours 5. Acute intervention needed for co occurring medical disorder 6. Acute intervention needed for co occurring psychiatric disorder 7. Severe withdrawal that cannot be handled at a lower level of care (continued vomiting, continued diarrhea, abnormal vital signs) requiring intravenous medication and/or fluids 8. Patient presents the following: CIWA greater than 12 Admission Criteria Met: Admission criteria met Admitting History and Physical - Smoking History Smoking history: Current every day smoker Have you smoked in the past 12 months: Yes Aproximately how many cigarettes per day: 15 - Alcohol/Substance Use Hx Alcohol Use: Yes Admission ROS S - HPI Chief Complaint: I came here for detox Allergies/Adverse Reactions: Allergies Allergy/AdvReac Type Severity Reaction Status Date / Time No Known Allergies Allergy Verified 07/22/11 21:50 History of Present Illness: 69 year old man with alcoholism presents for detox. He reports his last treatment was in [place] about 3 months ago. He reports remote h/o seizure and blackouts. Exam Limitations: No Limitations - Ebola screening Have you traveled outside of the country in the last 21 days: No Have you had contact with anyone from an Ebola affected area: No Have you been sick,other than usual withdrawal symptoms: No Do you have a fever: No - Review of Systems Constitutional: Changes in sleep EENT: reports: Blurred Vision Respiratory: reports: Cough (r/t cigarette smoking) Cardiac: reports: No Symptoms Reported GI: reports: Poor Appetite, Poor Fluid Intake : reports: No Symptoms Reported Musculoskeletal: reports: Back Pain, Joint Pain Integumentary: reports: Lesions, Rash Neuro: reports: Headache, Numbness Endocrine: reports: No Symptoms Reported Hematology: reports: No Symptoms Reported Psychiatric: reports: No Sypmtoms Reported Other Systems: Reviewed and Negative Patient History - Patient Medical History Hx Anemia: No Hx Asthma: No Hx Chronic Obstructive Pulmonary Disease (COPD): No Hx Cancer: No Hx Cardiac Disorders: No Hx Congestive Heart Failure: No Hx Hypertension: No Hx Hypercholesterolemia: No Hx Pacemaker: No HX Cerebrovascular Accident: No Hx Seizures: No Hx Dementia: No Hx Diabetes: No Hx Gastrointestinal Disorders: No Hx Liver Disease: No Hx Genitourinary Disorders: No Hx Sexually Transmitted Disorders: No Hx Renal Disease (ESRD): No Hx Thyroid Disease: No Hx Human Immunodeficiency Virus (HIV): No Hx Hepatitis C: No Hx Depression: No Hx Suicide Attempt: No Hx Bipolar Disorder: No Hx Schizophrenia: No - Patient Surgical History Past Surgical History: No Hx Neurologic Surgery: No Hx Cataract Extraction: No Hx Cardiac Surgery: No Hx Lung Surgery: No Hx Breast Surgery: No Hx Breast Biopsy: No Hx Abdominal Surgery: No Hx Appendectomy: No Hx Cholecystectomy: No Hx Genitourinary Surgery: No Hx Section: No Hx Orthopedic Surgery: No (left 4th toe amputation) Anesthesia Reaction: No - PPD History Previous Implant?: Yes Documented Results: Negative w/proof Implanted On Prior [facility] Admission?: Yes Date: 08/08/18 Results: Negative PPD to be Administered?: Yes - Smoking Cessation Smoking history: Current every day smoker Have you smoked in the past 12 months: Yes Aproximately how many cigarettes per day: 15 Hx Chewing Tobacco Use: No Initiated information on smoking cessation: Yes 'Breaking Loose' booklet given: 09/15/19 - Substances abused Alcohol Substance route: Oral Frequency: Daily Amount used: i/2 pint vodka Age of first use: 12 Date of last use: 09/15/19 Admission Physical Exam S - Vital Signs Vital Signs: Vital Signs - 24 hr 09/15/19 13:15 Temperature 96.3 F L Pulse Rate 92 H Respiratory 18 Rate Blood Pressure 140/86 - Physical General Appearance: Yes: No Apparent Distress, Nourished HEENTM: Yes: Hearing grossly Normal, Normocephalic, Normal Voice, Pharynx Normal Respiratory: Yes: Chest Non-Tender, Lungs Clear, Normal Breath Sounds, No Respiratory Distress, No Accessory Muscle Use Neck: Yes: No masses,lesions,Nodules, Supple Breast: Yes: Breast Exam Deferred Cardiology: Yes: Regular Rhythm, Regular Rate, S1, S2 Abdominal: Yes: Normal Bowel Sounds, Non Tender, Soft Genitourinary: Yes: Within Normal Limits Back: Yes: Normal Inspection Musculoskeletal: Yes: Back pain Extremities: Yes: Non-Tender, Erythema (to bilateral LE) Neurological: Yes: Normal Mood/Affect, Normal Response Integumentary: Yes: Rash Lymphatic: Yes: Within Normal Limits - Diagnostic (1) Alcohol dependence with uncomplicated withdrawal Current Visit: Yes Status: Acute (2) Nicotine dependence, uncomplicated Current Visit: Yes Status: Acute Qualifiers: Nicotine product type: cigarettes Qualified Code(s): F17.210 - Nicotine dependence, cigarettes, uncomplicated (3) Varicose veins of bilateral lower extremities with other complications Current Visit: Yes Status: Chronic Comment: With venous stasis Cleared for Admission S - Detox or Rehab [facility] Level of Care: Medically Managed Detox Regimen/Protocol: Librium Claeared for Rehab Admission: No Breathalyzer - Breathalyzer Breathalyzer: 0.110 Urine Drug Screen - Test Device Lot number: [id number] Expiration date: 06/09/21 - Control Is test valid?: Yes - Results Drug screen NEGATIVE: Yes Inpatient Rehab Admission - Rehab Decision to Admit Inpatient rehab admission?: No
[2019-09-15] MEDS ORDERED: NICOTINE POLACRILEX 2 MG GUM BUC PRN (15:16)
[2019-09-15] MEDS ORDERED: MENTHOL/PHENOL 1 EACH UD MM PRN (15:16)
[2019-09-15] MEDS ORDERED: MAGNESIUM CITRATE 300 ML BOTTLE PO PRN (15:16)
[2019-09-15] MEDS ORDERED: ACETAMINOPHEN 325 MG TABLET (FP) PO PRN ×2 (15:16)
[2019-09-15] MEDS ORDERED: IBUPROFEN 400 MG TABLET (FP) PO PRN (15:16)
[2019-09-15] MEDS ORDERED: BISMUTH SUBSALICYLATE 524 MG/30 ML UD PO PRN (15:16)
[2019-09-15] MEDS ORDERED: METHOCARBAMOL 500 MG TABLET PO PRN (15:16)
[2019-09-15] MEDS ORDERED: MAG HYDROX/AL HYDROX/SIMETH 30 ML UNIT-DOSE CUP PO PRN (15:16)
[2019-09-15] MEDS ORDERED: MAGNESIUM HYDROX 2400MG/30ML ORAL SUSPENSION 30 ML CUP PO PRN (15:16)
[2019-09-15] MEDS ORDERED: chlordiazePOXIDE HCL 10 MG CAPSULE PO PRN (15:16)
[2019-09-15] MEDS ORDERED: ONDANSETRON *ODT* 4 MG TABLET SL ONE (15:16)
[2019-09-15] MEDS ORDERED: AMMONIUM LACTATE 12% LOTION 225 GM BOTTLE TP PRN (15:17)
[2019-09-15] MEDS: hydrOXYzine PAMOATE 25 MG CAPSULE (FP) PO SCH ×2 (18:31→23:26)
[2019-09-15] MEDS: chlordiazePOXIDE HCL 25 MG CAPSULE PO SCH (23:26)
[2019-09-15] MEDS: MELATONIN 5 MG TABLETS PO SCH (23:27)
[2019-09-15] MEDS: THIAMINE HCL 100 MG TABLET (FP) PO SCH (23:27)
[2019-09-15] MEDS: CLOTRIMAZOLE 1%TOPICAL SOLUTION 30 ML BOTTLE TP SCH (23:28)
[2019-09-16] MEDS: hydrOXYzine PAMOATE 25 MG CAPSULE (FP) PO SCH (05:37)
[2019-09-16] MEDS: chlordiazePOXIDE HCL 25 MG CAPSULE PO SCH ×3 (05:37→22:59)
[2019-09-16] MEDS ORDERED: COLLOIDAL OATMEAL 1 BAR EACH TP PRN (09:34)
--- NOTE | 2019-09-16 09:41 | PN ---
[facility] CIWA - CIWA Score Nausea/Vomitin Muscle Tremors: 3 Anxiety: 3 Agitation: 0-Normal Activity Paroxysmal Sweats: 2 Orientation: 0-Oriented Tacttile Disturbances: 1-Very Mild Itch/Numbness Auditory Disturbances: 0-None Visual Disturbances: 0-None Headache: 0-None Present CIWA-Ar Total Score: 11 S Progress Note (SOAP) Subjective: 69 years old male admitted on 09/15/19 for alcohol withdrawal sx management treating with librium detox regiment sitting on the edge of the bed eating breakfast alert oriented x 3 no acute distress no trouble chewing swallowing tolerate food and fluid well speech clearly report inner arms itching noted skin warm and intact mild redness around elbows and antecubital areas hydrocortison cream 1% to both arms Objective: 09/16/19 09:39 Vital Signs Temperature 97.2 F L 09/16/19 06:20 Pulse Rate 64 09/16/19 06:20 Respiratory Rate 18 09/16/19 06:20 Blood Pressure 149/82 09/16/19 06:20 O2 Sat by Pulse Oximetry (%) 09/16/19 09:40 lab pending 09/16/19 09:41 bp elevation begin amlodipine 5 mg po daily Assessment: 09/16/19 09:41 alcohol withdrawal Plan: librium regiment
[2019-09-16] MEDS: amLODIPine BESYLATE 5 MG TABLET (FP) PO SCH (10:52)
[2019-09-16] MEDS: PRENATAL VITAMINS W/ FOLIC ACID TABLET (FP) PO SCH (10:52)
[2019-09-16] MEDS: NICOTINE 14 MG/24 HOURS TOPICAL PATCH TD SCH (10:52)
[2019-09-16] MEDS: HYDROCORTISONE 1% TOPICAL CREAM 30 GM TUBE TP SCH ×4 (10:54→22:58)
[2019-09-16] MEDS: CLOTRIMAZOLE 1%TOPICAL SOLUTION 30 ML BOTTLE TP SCH ×2 (10:54→23:01)
[2019-09-16 11:35] LABS: HEMATOCRIT 41.5 % (35.4-49); HEMOGLOBIN 14.2 GM/dL (11.7-16.9); MCHC 34.2 g/dl (32.0-35.9); MEAN CELL VOLUME 99.3 fl (80-96); MEAN PLT VOLUME 8.6 fl (7.5-11.1); PLATELET COUNT 152 K/MM3 (134-434); RBC 4.18 M/mm3 (4.00-5.60); RDW 13.4 % (11.9-15.9); WHITE BLOOD COUNT 3.8 K/mm3 (4.0-10.0)
[2019-09-16 11:55] LABS: ALBUMIN 3.8 g/dl (3.4-5.0); BILIRUBIN,TOTAL 1.2 mg/dL (0.2-1); BLOOD UREA NITROGEN 12.7 mg/dL (7-18); CALCIUM 9.2 mg/dL (8.5-10.1); CREATININE 0.9 mg/dL (0.55-1.3); POTASSIUM 3.9 mmol/L (3.5-5.1); TOT PROT 7.8 g/dl (6.4-8.2)
[2019-09-16] MEDS: MELATONIN 5 MG TABLETS PO SCH (22:59)
[2019-09-16] MEDS: THIAMINE HCL 100 MG TABLET (FP) PO SCH (23:00)
[2019-09-17] MEDS: chlordiazePOXIDE 5 MG CAPSULE PO SCH ×2 (06:05→18:44)
[2019-09-17] MEDS: CLOTRIMAZOLE 1%TOPICAL SOLUTION 30 ML BOTTLE TP SCH ×3 (10:30→22:53)
[2019-09-17] MEDS: HYDROCORTISONE 1% TOPICAL CREAM 30 GM TUBE TP SCH ×4 (10:31→22:52)
[2019-09-17] MEDS: amLODIPine BESYLATE 5 MG TABLET (FP) PO SCH (10:31)
[2019-09-17] MEDS: PRENATAL VITAMINS W/ FOLIC ACID TABLET (FP) PO SCH (10:31)
[2019-09-17] MEDS: NICOTINE 14 MG/24 HOURS TOPICAL PATCH TD SCH (10:31)
--- NOTE | 2019-09-17 12:56 | PN ---
S CIWA - CIWA Score Nausea/Vomitin-No Nausea/No Vomiting Muscle Tremors: 2 Anxiety: 4-Mod. Anxious/Guarded Agitation: 1-Slight > Activity Paroxysmal Sweats: 1-Minimal Palms Moist Orientation: 0-Oriented Tacttile Disturbances: 0-None Auditory Disturbances: 0-None Visual Disturbances: 0-None Headache: 1-Very Mild CIWA-Ar Total Score: 9 S Progress Note (SOAP) Subjective: 69 years old male admitted on 09/15/19 for alcohol withdrawal sx management treating with libirum detox regiment reports long history of fungal toes both lower legs skin discoloration with skin peeling clotrimazole cream tid to feet left 5th toe amputated "so long ago" ambulating steady gait equal strength Objective: 09/17/19 12:59 Vital Signs Temperature 98.5 F 09/17/19 08:43 Pulse Rate 74 09/17/19 08:43 Respiratory Rate 18 09/17/19 08:43 Blood Pressure 116/74 09/17/19 08:43 O2 Sat by Pulse Oximetry (%) Laboratory Last Values WBC 3.8 K/mm3 (4.0-10.0) L 09/16/19 07:50 RBC 4.18 M/mm3 (4.00-5.60) 09/16/19 07:50 Hgb 14.2 GM/dL (11.7-16.9) 09/16/19 07:50 Hct 41.5 % (35.4-49) 09/16/19 07:50 MCV 99.3 fl (80-96) H 09/16/19 07:50 MCH 34.0 pg (25.7-33.7) H 09/16/19 07:50 MCHC 34.2 g/dl (32.0-35.9) 09/16/19 07:50 RDW 13.4 % (11.9-15.9) 09/16/19 07:50 Plt Count 152 K/MM3 (134-434) 09/16/19 07:50 MPV 8.6 fl (7.5-11.1) 09/16/19 07:50 Sodium 141 mmol/L (136-145) 09/16/19 07:50 Potassium 3.9 mmol/L (3.5-5.1) 09/16/19 07:50 Chloride 103 mmol/L (98-107) 09/16/19 07:50 Carbon Dioxide 31 mmol/L (21-32) 09/16/19 07:50 Anion Gap 7 MMOL/L (8-16) L 09/16/19 07:50 BUN 12.7 mg/dL (7-18) 09/16/19 07:50 Creatinine 0.9 mg/dL (0.55-1.3) 09/16/19 07:50 Est GFR (CKD-EPI)AfAm 99.94 09/16/19 07:50 Est GFR (CKD-EPI)NonAf 86.23 09/16/19 07:50 Random Glucose 124 mg/dL (74-106) H 09/16/19 07:50 Calcium 9.2 mg/dL (8.5-10.1) 09/16/19 07:50 Total Bilirubin 1.2 mg/dL (0.2-1) H 09/16/19 07:50 AST 160 U/L (15-37) H 09/16/19 07:50 ALT 167 U/L (13-61) H 09/16/19 07:50 Alkaline Phosphatase 129 U/L (45-117) H 09/16/19 07:50 Total Protein 7.8 g/dl (6.4-8.2) 09/16/19 07:50 Albumin 3.8 g/dl (3.4-5.0) 09/16/19 07:50 RPR Titer Nonreactive (NONREACTIVE) 09/16/19 07:50 lab noted ast elevation discontinue librium begin ativan detox regiment Assessment: 09/17/19 13:00 alcohol withdrawal Plan: ativan regiment
[2019-09-17] MEDS ORDERED: LORazepam 1 MG TABLET PO PRN (13:03)
[2019-09-17] MEDS: LORazepam 1 MG TABLET PO SCH ×2 (18:03→22:48)
[2019-09-17] MEDS: THIAMINE HCL 100 MG TABLET (FP) PO SCH (22:48)
[2019-09-17] MEDS: MELATONIN 5 MG TABLETS PO SCH (22:48)
[2019-09-18] MEDS ORDERED: chlordiazePOXIDE HCL 10 MG CAPSULE PO PRN
[2019-09-18] MEDS ORDERED: LORazepam 0.5 MG TABLET PO PRN (00:05)
[2019-09-18] MEDS ORDERED: chlordiazePOXIDE HCL 10 MG CAPSULE PO SCH (05:00)
[2019-09-18] MEDS: LORazepam 0.5 MG TABLET PO SCH ×4 (06:20→23:00)
[2019-09-18] MEDS: CLOTRIMAZOLE 1%TOPICAL SOLUTION 30 ML BOTTLE TP SCH ×3 (06:24→23:02)
[2019-09-18] MEDS: PRENATAL VITAMINS W/ FOLIC ACID TABLET (FP) PO SCH (10:39)
[2019-09-18] MEDS: HYDROCORTISONE 1% TOPICAL CREAM 30 GM TUBE TP SCH ×4 (10:39→23:02)
[2019-09-18] MEDS: amLODIPine BESYLATE 5 MG TABLET (FP) PO SCH (10:39)
[2019-09-18] MEDS: NICOTINE 14 MG/24 HOURS TOPICAL PATCH TD SCH (10:40)
--- NOTE | 2019-09-18 14:32 | PN ---
S CIWA - CIWA Score Nausea/Vomitin-No Nausea/No Vomiting Muscle Tremors: 2 Anxiety: 2 Agitation: 0-Normal Activity Paroxysmal Sweats: 2 Orientation: 0-Oriented Tacttile Disturbances: 0-None Auditory Disturbances: 0-None Visual Disturbances: 0-None Headache: 0-None Present CIWA-Ar Total Score: 6 BHS Progress Note (SOAP) Subjective: 69 years old male admitted on 09/15/19 for alcohol withdrawal sx management treating with ativan detox regiment feeling better today less tremor mild anxiety Objective: 09/18/19 14:31 Vital Signs Temperature 97.3 F L 09/18/19 12:34 Pulse Rate 82 09/18/19 12:34 Respiratory Rate 18 09/18/19 12:34 Blood Pressure 144/95 09/18/19 12:34 O2 Sat by Pulse Oximetry (%) Laboratory Last Values WBC 3.8 K/mm3 (4.0-10.0) L 09/16/19 07:50 RBC 4.18 M/mm3 (4.00-5.60) 09/16/19 07:50 Hgb 14.2 GM/dL (11.7-16.9) 09/16/19 07:50 Hct 41.5 % (35.4-49) 09/16/19 07:50 MCV 99.3 fl (80-96) H 09/16/19 07:50 MCH 34.0 pg (25.7-33.7) H 09/16/19 07:50 MCHC 34.2 g/dl (32.0-35.9) 09/16/19 07:50 RDW 13.4 % (11.9-15.9) 09/16/19 07:50 Plt Count 152 K/MM3 (134-434) 09/16/19 07:50 MPV 8.6 fl (7.5-11.1) 09/16/19 07:50 Sodium 141 mmol/L (136-145) 09/16/19 07:50 Potassium 3.9 mmol/L (3.5-5.1) 09/16/19 07:50 Chloride 103 mmol/L (98-107) 09/16/19 07:50 Carbon Dioxide 31 mmol/L (21-32) 09/16/19 07:50 Anion Gap 7 MMOL/L (8-16) L 09/16/19 07:50 BUN 12.7 mg/dL (7-18) 09/16/19 07:50 Creatinine 0.9 mg/dL (0.55-1.3) 09/16/19 07:50 Est GFR (CKD-EPI)AfAm 99.94 09/16/19 07:50 Est GFR (CKD-EPI)NonAf 86.23 09/16/19 07:50 Random Glucose 124 mg/dL (74-106) H 09/16/19 07:50 Calcium 9.2 mg/dL (8.5-10.1) 09/16/19 07:50 Total Bilirubin 1.2 mg/dL (0.2-1) H 09/16/19 07:50 AST 160 U/L (15-37) H 09/16/19 07:50 ALT 167 U/L (13-61) H 09/16/19 07:50 Alkaline Phosphatase 129 U/L (45-117) H 09/16/19 07:50 Total Protein 7.8 g/dl (6.4-8.2) 09/16/19 07:50 Albumin 3.8 g/dl (3.4-5.0) 09/16/19 07:50 RPR Titer Nonreactive (NONREACTIVE) 09/16/19 07:50 lab noted Assessment: 09/18/19 14:32 alcohol withdrawal Plan: ativan regiment
[2019-09-18] MEDS: MELATONIN 5 MG TABLETS PO SCH (22:59)
[2019-09-18] MEDS: THIAMINE HCL 100 MG TABLET (FP) PO SCH (23:00)
[2019-09-19] MEDS ORDERED: LORazepam 0.5 MG TABLET PO PRN
[2019-09-19] MEDS ORDERED: LORazepam 0.5 MG TABLET PO ONE (05:00)
[2019-09-19] MEDS ORDERED: chlordiazePOXIDE HCL 10 MG CAPSULE PO ONE (05:00)
[2019-09-19] MEDS: CLOTRIMAZOLE 1%TOPICAL SOLUTION 30 ML BOTTLE TP SCH (06:15)
[2019-09-19 06:47] VITALS: BP 125/80; PULSE 63; TEMP 97.2
--- NOTE | 2019-09-19 09:58 | DS ---
[facility] Detox Discharge Summary Admission Date: 09/15/19 Discharge Date: 09/19/19 - History Present History: Alcohol Dependence Additional Comments: 69 years old male admitted on 09/15/19 for alcohol withdrawal sx management treated with ativan detox regiment Mr Thorpe has completed the ativan regiment and is tolerated well alert oriented x 3 cardiac s1s2 regular rate rhythm respiratory clear lung sounds bilaterally on auscultation skin warm and dry Pertinent Past History: time for discharge 34 minutes - Physical Exam Results Vital Signs: Vital Signs Temperature 97.2 F L 09/19/19 06:47 Pulse Rate 63 09/19/19 06:47 Respiratory Rate 18 09/19/19 06:47 Blood Pressure 125/80 09/19/19 06:47 O2 Sat by Pulse Oximetry (%) Pertinent Admission Physical Exam Findings: alcohol withdrawal Laboratory Last Values WBC 3.8 K/mm3 (4.0-10.0) L 09/16/19 07:50 RBC 4.18 M/mm3 (4.00-5.60) 09/16/19 07:50 Hgb 14.2 GM/dL (11.7-16.9) 09/16/19 07:50 Hct 41.5 % (35.4-49) 09/16/19 07:50 MCV 99.3 fl (80-96) H 09/16/19 07:50 MCH 34.0 pg (25.7-33.7) H 09/16/19 07:50 MCHC 34.2 g/dl (32.0-35.9) 09/16/19 07:50 RDW 13.4 % (11.9-15.9) 09/16/19 07:50 Plt Count 152 K/MM3 (134-434) 09/16/19 07:50 MPV 8.6 fl (7.5-11.1) 09/16/19 07:50 Sodium 141 mmol/L (136-145) 09/16/19 07:50 Potassium 3.9 mmol/L (3.5-5.1) 09/16/19 07:50 Chloride 103 mmol/L (98-107) 09/16/19 07:50 Carbon Dioxide 31 mmol/L (21-32) 09/16/19 07:50 Anion Gap 7 MMOL/L (8-16) L 09/16/19 07:50 BUN 12.7 mg/dL (7-18) 09/16/19 07:50 Creatinine 0.9 mg/dL (0.55-1.3) 09/16/19 07:50 Est GFR (CKD-EPI)AfAm 99.94 09/16/19 07:50 Est GFR (CKD-EPI)NonAf 86.23 09/16/19 07:50 Random Glucose 124 mg/dL (74-106) H 09/16/19 07:50 Calcium 9.2 mg/dL (8.5-10.1) 09/16/19 07:50 Total Bilirubin 1.2 mg/dL (0.2-1) H 09/16/19 07:50 AST 160 U/L (15-37) H 09/16/19 07:50 ALT 167 U/L (13-61) H 09/16/19 07:50 Alkaline Phosphatase 129 U/L (45-117) H 09/16/19 07:50 Total Protein 7.8 g/dl (6.4-8.2) 09/16/19 07:50 Albumin 3.8 g/dl (3.4-5.0) 09/16/19 07:50 RPR Titer Nonreactive (NONREACTIVE) 09/16/19 07:50 T.pallidum Ab Interpret Cancelled 09/16/19 07:50 lab noted Mr Thorpe prefers to follow up with his primary care provider for medical condition - Treatment Hospital Course: Detox Protocol Followed, Detoxed Safely, Responded well, Discharged Condition Good, Rehab Referral Accepted Patient has Accepted [facility] Referral [facility] - Medication Discharge Medications: Ambulatory Orders Ammonium Lactate Cream [Lac-Hydrin 12% Cream -] 1 applic TP BID 10/29/18 Clotrimazole 1 applic TP BID 10/29/18 - Diagnosis (1) Alcohol dependence with uncomplicated withdrawal Status: Acute (2) Nicotine dependence, uncomplicated Status: Acute Qualifiers: Nicotine product type: cigarettes Qualified Code(s): F17.210 - Nicotine dependence, cigarettes, uncomplicated - AMA Did Patient Leave Against Medical Advice: No CIWA Score - CIWA Score Nausea/Vomitin-No Nausea/No Vomiting Muscle Tremors: 1-None Visible, but [place] Anxiety: 2 Agitation: 0-Normal Activity Paroxysmal Sweats: No Perspiration Orientation: 0-Oriented Tacttile Disturbances: 0-None Auditory Disturbances: 0-None Visual Disturbances: 0-None Headache: 0-None Present CIWA-Ar Total Score: 3
== END 2019-09-19 08:42 | disposition home or self-care (01) | DRG 897 ==
LOC: YASAS 12:33 → Y3N 15:27
PROVIDERS: ADMIT Allergy & Immunology; ATTEND Allergy & Immunology
PROC: HZ2ZZZZ Detoxification Services for Substance Abuse Treatment (ICD-10-PCS; principal; 2019-09-15)
DX: F10.230 Alcohol dependence with withdrawal, uncomplicated (principal); F17.210 Nicotine dependence, cigarettes, uncomplicated; R74.0 Nonspecific elevation of levels of transaminase and lactic acid dehydrogenase [LDH]; R03.0 Elevated blood-pressure reading, without diagnosis of hypertension; Z89.422 Acquired absence of other left toe(s); I83.893 Varicose veins of bilateral lower extremities with other complications
CPT/HCPCS: 36415; 80053; 85027; 86593; Q0162

== ENCOUNTER 2020-04-02 08:28 | Inpatient (IN) | payer OTHER ==
--- OUTSIDE RECORDS SUMMARY | 2020-04-02 08:40 | XMS ---
:1950 Author Organization [facility] Care Team Providers Name Role Phone ED STAFF PHYSICIAN, STAFF Unavailable Unavailable ED STAFF PHYSICIAN Unavailable Unavailable ED STAFF PHYSICIAN Unavailable Unavailable Re-disclosure Warning The records that you are about to access may contain information from federally- assisted alcohol or drug abuse programs. If such information is present, then the following federally mandated warning applies: This information has been disclosed to you from records protected by federal confidentiality rules (42 CFR part 2). The federal rules prohibit you from making any further disclosure of this information unless further disclosure is expressly permitted by the written consent of the person to whom it pertains or as otherwise permitted by 42 CFR part 2. A general authorization for the release of medical or other information is NOT sufficient for this purpose. The Federal rules restrict any use of the information to criminally investigate or prosecute any alcohol or drug abuse patient.The records that you are about to access may contain highly sensitive health information, the redisclosure of which is protected by Article 27-F of the [facility] Public Health law. If you continue you may haveaccess to information: Regarding HIV / AIDS; Provided by facilities licensed or operated by the [facility] Office of Mental Health; or Provided by the [facility] Office for People With Developmental Disabilities. If such information is present, then the following [facility] mandated warning applies: This information has been disclosed to you from confidential records which are protected by state law. State law prohibits you from making any further disclosure of this information without the specific written consent of the person to whom it pertains, or as otherwise permitted by law. Any unauthorized further disclosure in violation of state law may result in a fine or nursing home sentence or both. A general authorization for the release of medical or other information is NOT sufficient authorization for further disclosure. Allergies and Adverse Reactions Type Description Substance Reaction Status Data Source(s ) Food allergy No Known Food No Known Food [facility] Drug allergy No Known Drug No Known Drug [facility] Encounters Encounter Providers Location Date Indications Data Source(s ) Emergency Attender: ED STAFF 09/24/2019 [facility] PHYSICIANAttender: 01:12:00 AM EDT [facility] STAFF ED STAFF - 09/24/2019 PHYSICIANAdmitter: 08:43:00 AM EDT ED STAFF PHYSICIAN Patient discharged. Emergency Attender: ED STAFF 08/30/2019 01:52:00 AM [facility] PHYSICIANAttender: STAFF ED EST - 08/30/2019 [facility] STAFF PHYSICIANAdmitter: ED 05:13:00 AM EST STAFF PHYSICIAN Patient discharged. Emergency Attender: ED STAFF 08/06/2019 02:46:00 AM [facility] PHYSICIANAttender: STAFF ED EST - 08/06/2019 [facility] STAFF PHYSICIANAdmitter: ED 05:24:00 AM EST STAFF PHYSICIAN Patient discharged. Emergency Attender: ED STAFF 2019 11:52:00 PM [facility] PHYSICIANAttender: STAFF ED EST - 07/28/2019 [facility] STAFF PHYSICIANAdmitter: ED 04:05:00 AM EST STAFF PHYSICIAN Patient discharged. Insurance Providers Payer name Policy type Policy ID Covered Covered green party's Policy P rojelio / Coverage green party ID relationship to [facility] ormation type drew VALUE [id number] SP [id number] OPTIONS-MEDICARE KEITH MEDICARE [id number] SP [id number] MEDICAID [id number] SP [id number] WELLCARE [id number] SP [id number] MEDICARE VALUE [id number] SP [id number] 401 OPTIONS-MEDICARE EMBLEMBHEALTH O [id number] 01 [id number] MCARE W [id number] WELLCARE O 01 MEDICARE KEITH MEDICARE [id number] SP [id number] MEDICARE [id number] SP [id number] [facility] [id number] SP [id number] [facility]. Problems, Conditions, and Diagnoses Code Display Name Description Problem Type Effective Data Sour ce(s) Dates M79.671 Pain in right foot PAIN IN RIGHT FOOT Diagnosis 0 [facility] 01:12:[address] [facility] M79.672 Pain in left foot PAIN IN LEFT FOOT Diagnosis 09/24/2019 [facility] 01:12:00 AM Medical [facility] r EDT M79.673 Pain in PAIN IN Diagnosis 09/24/2019 [facility] unspecified foot UNSPECIFIED FOOT 01:12:00 AM [facility] EDT F17.210 Nicotine NICOTINE Diagnosis 08/30/2019 [facility] dependence, DEPENDENCE, 01:52:[address] cigarettes, CIGARETTES, EST uncomplicated UNCOMPLICATED L84 Corns and CORNS AND Diagnosis 08/30/2019 [facility] callosities CALLOSITIES 01:52:[address] EST R51 Headache HEADACHE Diagnosis 08/30/2019 [facility] 01:52:00 AM Medical Cente r EST I83.93 Asymptomatic ASYMPTOMATIC Diagnosis 08/06/2019 [facility] phs varicose veins of VARICOSE VEINS OF 02:46:00 AM Medical Center bilateral lower BILATERAL LOWER EST extremities EXTREMITIES M54.9 Dorsalgia, DORSALGIA, Diagnosis 08/06/2019 [facility] unspecified UNSPECIFIED 02:46:[address] EST F10.10 Alcohol abuse, ALCOHOL ABUSE, Diagnosis 2019 [facility] uncomplicated UNCOMPLICATED 11:52:00 PM Medical Center EST Z00.00 Encounter for ENCNTR FOR GENERAL Diagnosis 2019 [facility] general adult ADULT MEDICAL EXAM 11:52:[address] [facility] medical W/O ABNORMAL EST examination FINDINGS without abnormal findings Results ID Date Data Source [id number] 12/26/2019 11:30:00 AM EDT [facility] Name Value Range Interpretation Code Description Data Joy rce(s) Supporting Document(s ) SARS-COV-2 [facility] PCR This lab was ordered by [facility] and re ported by [facility]. ID Date Data Source [id number] 07/28/2019 12:10:00 AM [facility] 0 Name Value Range Interpretation Description Data Sup porting Code Source(s) Document(s ) Glucose NEGATIVE <content [facility] [Mass/volume] styleCode="[facility]ley Jeronimo in Urine by d">Urine Medical Test strip Glucose Center </content>NEGA TIVE MG/DL<content styleCode="Jazzy lics"> (NEGATIVE MG/DL)</conten t> UNK CLEAR <content [facility] styleCode="[facility] d">Urine Medical Clarity Center </content>GARRICK R <content styleCode="Jazzy lics"> (CLEAR )</content> Specific 1.015-1.02 Below low normal <content [facility] gravity of 5 styleCode="Ashley Jeronimo Urine by Test d">Urine Medical strip Specific Center [place] </content><= 1.005 L<content styleCode="Jazzy lics"> (1.015-1.025 )</content> UNK NEGATIVE <content Saint styleCode="Ashley Phani d">Urine Medical Bilirubin Center </content>NEGA TIVE <content styleCode="Jazzy lics"> (NEGATIVE )</content> Color of Urine YELLOW <content Saint styleCode="Ashley Grajedas d">Color, Medical Urine Center </content>YELL OW <content styleCode="Jazzy lics"> (YELLOW )</content> Ketones NEGATIVE <content [facility] [Mass/volume] styleCode="Ashley Grajedas in Urine by d">Urine Medical Test strip Ketone Center </content>NEGA TIVE MG/DL<content styleCode="Jazzy lics"> (NEGATIVE MG/DL)</conten t> Protein NEGATIVE <content [facility] [Mass/volume] styleCode="Ashley Grajedas in Urine by d">Urine Medical Test strip Protein Center </content>NEGA TIVE MG/DL<content styleCode="Jazzy lics"> (NEGATIVE MG/DL)</conten t> Urobilinogen 0.2-1.0 <content [facility] [Units/volume] styleCode="Ashley Jeronimo in Urine by d">Urine Medical Test strip Urobilinogen Center </content>0.2 MG/DL<content styleCode="Jazzy lics"> (0.2-1.0 MG/DL)</conten t> Hemoglobin NEGATIVE <content [facility] [Presence] in styleCode="Ashley Jeronimo Urine by Test d">Urine Blood Medical strip </content>NEGA Center TIVE <content styleCode="Jazzy lics"> (NEGATIVE )</content> Nitrite NEGATIVE <content [facility] [Presence] in styleCode="Ashley Jeronimo Urine by Test d">Urine Medical strip Nitrite Center </content>NEGA TIVE <content styleCode="Jazzy lics"> (NEGATIVE )</content> pH of Urine by 4.5-8.0 <content Saint Test strip styleCode="Ashley Grajedas d">Urine pH Medical </content>5.5 Center <content styleCode="Jazzy lics"> (4.5-8.0 )</content> Leukocyte NEGATIVE <content [facility] esterase styleCode="Ashley Grajedas [Presence] in d">Urine Medical Urine by Test Leukocyte Center strip </content>NEGA TIVE <content styleCode="Jazzy lics"> (NEGATIVE )</content> Procedure Social History Code Duration Value Status Description Data Source(s ) Smoking 09/24/2019 Daily Smoker completed Daily Smoker [facility] 03:07:00 AM EDT Medical C enter Smoking 09/24/2019 Daily Smoker completed Daily Smoker [facility] 01:39:00 AM EDT Medical C enter Smoking 09/24/2019 Daily Smoker completed Daily Smoker [facility] 01:17:00 AM EDT Medical C enter Smoking 08/30/2019 Daily Smoker completed Daily Smoker [facility] 03:55:00 AM EST Medical C enter Smoking 08/30/2019 Daily Smoker completed Daily Smoker [facility] 02:29:00 AM EST Medical C enter Smoking 08/30/2019 Daily Smoker completed Daily Smoker [facility] 02:03:00 AM EST Medical C enter Smoking 08/06/2019 Denies Ever completed Denies Ever Smoked [facility] 03:58:00 AM EST Smoked Medical C enter Smoking 08/06/2019 Denies Ever completed Denies Ever Smoked [facility] 02:58:00 AM EST Smoked Medical C enter Smoking 08/06/2019 Denies Ever completed Denies Ever Smoked [facility] 02:53:00 AM EST Smoked Medical C enter Smoking 07/28/2019 Denies Ever completed Denies Ever Smoked [facility] 12:03:00 AM EST Smoked Medical C enter Smoking 2019 Denies Ever completed Denies Ever Smoked [facility] 11:57:00 PM EST Smoked Medical C enter Smoking 2019 Denies Ever completed Denies Ever Smoked [facility] 11:53:00 PM EST Smoked Medical C enter Vital Signs ID Date Data Source UNK Name Value Range Interpretation Code Description Data Source(s) Body temperature 36.272996 36.089475 [facility] Respiratory rate 17 /min 17 /min [facility] Oxygen saturation 98 % 98 % [facility] blood [facility] by Pulse oximetry Heart rate 84 /min 84 /min [facility] Diastolic blood 83 mm[Hg] 83 mm[Hg] [facility] Systolic blood 129 mm[Hg] 129 mm[Hg] [facility] Body temperature 36.943112 36.789561 [facility] Respiratory rate 16 /min 16 /min [facility] Oxygen saturation 95 % 95 % [facility] blood [facility] by Pulse oximetry Heart rate 82 /min 82 /min [facility] Diastolic blood 76 mm[Hg] 76 mm[Hg] [facility] Systolic blood 134 mm[Hg] 134 mm[Hg] [facility] Body temperature 37.359185 37.156421 [facility] Respiratory rate 18 /min 18 /min [facility] Oxygen saturation 99 % 99 % [facility] blood [facility] by Pulse oximetry Heart rate 82 /min 82 /min [facility] Diastolic blood 88 mm[Hg] 88 mm[Hg] [facility] Systolic blood 134 mm[Hg] 134 mm[Hg] [facility] Body weight 77.128665 kg 77.242298 kg [facility] Body temperature 37.138389 37.462684 [facility] Respiratory rate 18 /min 18 /min [facility] Oxygen saturation 97 % 97 % [facility] Arterial blood [facility] by Pulse oximetry Heart rate 92 /min 92 /min [facility] Body height 172.512247 172.578670 cm [facility] Diastolic blood 97 mm[Hg] 97 mm[Hg] [facility] pressure [facility] Systolic blood 157 mm[Hg] 157 mm[Hg] [facility] pressure [facility] Body mass index 26.0 kg/m2 26.0 kg/m2 [facility] (BMI) [Ratio] [facility] Body temperature 37.753299 37.572237 [facility] Respiratory rate 17 /min 17 /min [facility] Oxygen saturation 95 % 95 % [facility] blood [facility] by Pulse oximetry Heart rate 71 /min 71 /min [facility] Diastolic blood 82 mm[Hg] 82 mm[Hg] [facility] pressure Medical Center Systolic blood 147 mm[Hg] 147 mm[Hg] [facility] pressure [facility]
--- NOTE | 2020-04-02 08:53 | BHS.RME ---
Substance Use & Tx History - Substance Use History Alcohol Substance amount: 1 pint vodka + 8-24 oz beers Frequency of use: Daily Substance route: Oral Date of Last Use: 04/01/20 (started age 12, last drank at 10PM yesterday) Nicotine Substance amount: 5-7 ciggs Frequency of use: Daily Substance route: Smoking Date of Last Use: 04/02/20 Physical/Psych/Mental Status - Behavior General Behavior: Increased activity (restlessness, agitation) Eye Contact: Normal - Cooperativeness Cooperativeness: Cooperative - Thinking Thought Processes: Tight, Logical, Goal Directed - Physical Health Problems Is patient presently having any pain?: No Does patient presently have any injuries (include location): No Does patient currently have a fever: No Is patient : No CIWA Nausea/Vomitin Muscle Tremors: 5 Anxiety: 2 Agitation: 2 Paroxysmal Sweats: 1-Minimal Palms Moist Orientation: 1-Uncertain about Date Tacttile Disturbances: 0-None Auditory Disturbances: 0-None Visual Disturbances: 0-None Headache: 0-None Present CIWA-Ar Total Score: 13
--- NOTE | 2020-04-02 09:03 | HP ---
CIWA Score Nausea/Vomitin Muscle Tremors: 5 Anxiety: 2 Agitation: 2 Paroxysmal Sweats: 1-Minimal Palms Moist Orientation: 1-Uncertain about Date Tacttile Disturbances: 0-None Auditory Disturbances: 0-None Visual Disturbances: 0-None Headache: 0-None Present CIWA-Ar Total Score: 13 - Admission Criteria OASAS Guidelines: Admission for Medically Managed Detox: Requires at least one of the followin. CIWA greater than 12 2. Seizures within the past 24 hours 3. Delirium tremens within the past 24 hours 4. Hallucinations within the past 24 hours 5. Acute intervention needed for co occurring medical disorder 6. Acute intervention needed for co occurring psychiatric disorder 7. Severe withdrawal that cannot be handled at a lower level of care (continued vomiting, continued diarrhea, abnormal vital signs) requiring intravenous medication and/or fluids 8. Admitting History and Physical - Admission Chief Complaint: Mr. Thorpe is a 69 yo man who presents to [facility] requesting admission to detox for alcohol use disorder. History of Present Illness: Mr. Thorpe is a 69 yo man who presents to [facility] requesting admission to detox for alcohol use disorder. He was last here between October 25 and 2019 when he completed detox. He declined referrals for outpatient or rehab. 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 Nicotine Substance amount: 5-7 ciggs Frequency of use: Daily Substance route: Smoking Date of Last Use: 04/02/20 First use age 14y History Source: Patient Limitations to Obtaining History: No Limitations - Smoking History Smoking history: Current every day smoker Have you smoked in the past 12 months: Yes Aproximately how many cigarettes per day: 7 - Alcohol/Substance Use Hx Alcohol Use: Yes Admission ROS S - HPI Allergies/Adverse Reactions: Allergies Allergy/AdvReac Type Severity Reaction Status Date / Time No Known Allergies Allergy Verified 04/02/20 09:03 Exam Limitations: No Limitations - Ebola screening Have you traveled outside of the country in the last 21 days: No Have you been sick,other than usual withdrawal symptoms: No Do you have a fever: No - Review of Systems Constitutional: No Symptoms Reported EENT: reports: Blurred Vision (has reading glasses with him), Other (was episodically, now ok) Respiratory: reports: No Symptoms reported Cardiac: reports: No Symptoms Reported GI: reports: Nausea : reports: No Symptoms Reported Musculoskeletal: reports: Joint Pain (hands/arthritic), Other (left fourth toe a mputation) Integumentary: reports: Other (dermatitis bilateral lower legs, rash left flank, right axilla uses hydrocortisone) Neuro: reports: No Symptoms reported Endocrine: reports: No Symptoms Reported Hematology: reports: No Symptoms Reported Psychiatric: reports: Anxious, Depressed (no SI, declines offer for psych consult) Patient History - Patient Medical History Hx Anemia: No Hx Asthma: No Hx Chronic Obstructive Pulmonary Disease (COPD): No Hx Cancer: No Hx Cardiac Disorders: No Hx Congestive Heart Failure: No Hx Hypertension: No Hx Hypercholesterolemia: No Hx Pacemaker: No HX Cerebrovascular Accident: No Hx Seizures: No Hx Dementia: No Hx Diabetes: No Hx Gastrointestinal Disorders: No Hx Liver Disease: No Hx Genitourinary Disorders: No Hx Sexually Transmitted Disorders: No Hx Renal Disease (ESRD): No Hx Thyroid Disease: No Hx Human Immunodeficiency Virus (HIV): No Hx Hepatitis C: No Hx Depression: No Hx Suicide Attempt: No Hx Bipolar Disorder: No Hx Schizophrenia: No - Patient Surgical History Past Surgical History: No Hx Neurologic Surgery: No Hx Cataract Extraction: No Hx Cardiac Surgery: No Hx Lung Surgery: No Hx Breast Surgery: No Hx Breast Biopsy: No Hx Abdominal Surgery: No Hx Appendectomy: No Hx Cholecystectomy: No Hx Genitourinary Surgery: No Hx Section: No Hx Orthopedic Surgery: No (left 4th toe amputation) Other Surgical History: left foot 15 years ago Anesthesia Reaction: No - PPD History Date: 09/17/19 Results: Negative - Smoking Cessation Smoking history: Current every day smoker Have you smoked in the past 12 months: Yes Aproximately how many cigarettes per day: 7 Hx Chewing Tobacco Use: No Initiated information on smoking cessation: Yes 'Breaking Loose' booklet given: 04/02/20 - Substances abused Alcohol Substance route: Oral Frequency: Daily Amount used: 12 / 24 OZ CANS Age of first use: 14 Date of last use: 04/01/20 Admission Physical Exam [facility] - Physical General Appearance: Yes: No Apparent Distress, Nourished, Appropriately Dressed HEENTM: Yes: EOMI, Hearing grossly Normal, Normocephalic, Normal Voice Respiratory: Yes: Lungs Clear, No Respiratory Distress, No Accessory Muscle Use Neck: Yes: Within Normal Limits, Supple Breast: Yes: Breast Exam Deferred Cardiology: Yes: Regular Rhythm, Regular Rate Abdominal: Yes: Normal Bowel Sounds, Non Tender, Flat, Soft Genitourinary: Yes: Other (deferred) Back: Yes: Normal Inspection Musculoskeletal: Yes: Other (mising left fourth toe) Extremities: Yes: Other (erythema, dry, distal legs, pt has orthopedic /velcro shoes. Rash left flank and right axilla red, raised individual macules, no vescicles, not pruritic per pt) - Diagnostic (1) Stasis dermatitis Current Visit: No Status: Chronic (2) Alcohol dependence with uncomplicated withdrawal Current Visit: No Status: Acute Comment: 1. Admit detox 2. Hx of elevated LFTs, will start Ativan 3. routine labs (3) Nicotine dependence, uncomplicated Current Visit: No Status: Chronic Qualifiers: Nicotine product type: cigarettes Qualified Code(s): F17.210 - Nicotine dependence, cigarettes, uncomplicated Cleared for Admission [facility] - Detox or Rehab [facility] Level of Care: Medically Managed Detox Regimen/Protocol: Ativan Breathalyzer - Breathalyzer Breathalyzer: 0.096 Urine Drug Screen - Test Device Lot number: [id number] Expiration date: 03/10/21 - Control Is test valid?: Yes - Results Drug screen NEGATIVE: Yes Inpatient Rehab Admission - Rehab Decision to Admit Inpatient rehab admission?: No
[2020-04-02 09:30] VITALS: BMI 26.6
[2020-04-02] MEDS ORDERED: LORazepam 1 MG TABLET PO PRN (09:31)
[2020-04-02] MEDS ORDERED: MENTHOL/PHENOL 1 EACH UD MM PRN (09:31)
[2020-04-02] MEDS ORDERED: ONDANSETRON *ODT* 4 MG TABLET SL PRN (09:31)
[2020-04-02] MEDS ORDERED: MAGNESIUM HYDROX 2400MG/30ML ORAL SUSPENSION 30 ML CUP PO PRN (09:31)
[2020-04-02] MEDS ORDERED: METHOCARBAMOL 500 MG TABLET PO PRN (09:31)
[2020-04-02] MEDS ORDERED: NICOTINE POLACRILEX 2 MG GUM BUC PRN (09:31)
[2020-04-02] MEDS ORDERED: IBUPROFEN 400 MG TABLET (FP) PO PRN (09:31)
[2020-04-02] MEDS ORDERED: MAG HYDROX/AL HYDROX/SIMETH 30 ML UNIT-DOSE CUP PO PRN (09:31)
[2020-04-02] MEDS ORDERED: ACETAMINOPHEN 325 MG TABLET (FP) PO PRN ×2 (09:31)
[2020-04-02] MEDS ORDERED: MAGNESIUM CITRATE 300 ML BOTTLE PO PRN (09:31)
[2020-04-02] MEDS ORDERED: BISMUTH SUBSALICYLATE 262 MG/15 ML BTL PO PRN (09:41)
[2020-04-02] MEDS ORDERED: HYDROCORTISONE 0.5% TOPICAL OINTMENT TUBE TP SCH (10:00)
[2020-04-02] MEDS ORDERED: PERMETHRIN (NIX CREAM SCALP RINSE) 59 ML 1% BOTTLE TP ONE (10:00)
[2020-04-02] MEDS ORDERED: PERMETHRIN 5% TOPICAL CREAM 60 GM TUBE ONE (10:07)
[2020-04-02] MEDS ORDERED: PERMETHRIN 5% TOPICAL CREAM 60 GM TUBE TP ONE (10:34)
--- OUTSIDE RECORDS SUMMARY | 2020-04-02 11:23 | XMS ---
[...] is protected by Article 27-F of the [facility] Public Health law. If you continue you may haveaccess to information: Regarding HIV / AIDS; Provided by facilities licensed or operated by the [facility] Office of Mental Health; or Provided by the [facility] Office for People With Developmental Disabilities. If such information is present, then the following [facility] mandated warning applies: This information has [...] law may result in a fine or fdc sentence or both. A general authorization for the release of medical or other information is NOT sufficient authorization for further disclosure. Allergies and Adverse Reactions Type Description Substance Reaction Status Data Source(s ) Food allergy No Known Food No Known Food [facility] Drug allergy No Known Drug No Known Drug [facility] Encounters Encounter Providers Location Date Indications Data Source(s ) Emergency Attender: ED STAFF 09/24/2019 [facility] PHYSICIANAttender: 01:12:[address] [facility] STAFF ED STAFF - 09/24/2019 PHYSICIANAdmitter: 08:43:00 AM EDT ED STAFF PHYSICIAN Patient discharged. Emergency Attender: ED STAFF 08/30/2019 01:52:00 AM [facility] PHYSICIANAttender: STAFF ED EST - 08/30/2019 [facility] STAFF PHYSICIANAdmitter: ED 05:13:00 AM EST STAFF PHYSICIAN Patient discharged. Emergency Attender: ED STAFF 08/06/2019 02:46:00 AM [facility] PHYSICIANAttender: STAFF ED EST - 08/06/2019 [facility] STAFF PHYSICIANAdmitter: ED 05:24:00 AM EST STAFF PHYSICIAN Patient discharged. Emergency Attender: ED STAFF 2019 11:52:00 PM [facility] PHYSICIANAttender: STAFF ED EST - 07/28/2019 [facility] STAFF PHYSICIANAdmitter: ED 04:05:00 AM EST STAFF PHYSICIAN Patient discharged. Insurance Providers Payer name Policy type Policy ID Covered Covered libertarian's Policy P rojelio / Coverage libertarian ID relationship to [facility] ormation type drew MEDICAID [id number] SP [id number] [facility] [id number] SP [id number] MEDICARE VALUE [id number] SP [id number] OPTIONS-MEDICARE KEITH MEDICARE [id number] SP [id number] VALUE [id number] SP [id number] OPTIONS-MEDICARE EMBLEMBHEALTH O [id number] MCARE W [id number] WELLCARE O 01 MEDICARE KEITH MEDICARE [id number] SP [id number] MEDICARE [id number] SP [id number] [facility] [id number] SP [id number] [facility]. Problems, Conditions, and Diagnoses Code Display Name Description Problem Type Effective Data Sour ce(s) Dates M79.671 Pain in right foot PAIN IN RIGHT FOOT Diagnosis 0 [facility] 01:12:00 [facility] M79.672 Pain in left foot PAIN IN LEFT FOOT Diagnosis 09/24/2019 [facility] 01:12:00 AM Medical [facility] r EDT M79.673 Pain in PAIN IN Diagnosis 09/24/2019 [facility] unspecified foot UNSPECIFIED FOOT 01:12:[address] [facility] EDT F17.210 Nicotine NICOTINE Diagnosis 08/30/2019 [facility] dependence, DEPENDENCE, 01:52:[address] cigarettes, CIGARETTES, EST uncomplicated UNCOMPLICATED L84 Corns and CORNS AND Diagnosis 08/30/2019 [facility] callosities CALLOSITIES 01:52:[address] EST R51 Headache HEADACHE Diagnosis 08/30/2019 [facility] 01:52:00 AM Medical Cente r EST I83.93 Asymptomatic ASYMPTOMATIC Diagnosis 08/06/2019 [facility] phs varicose veins of VARICOSE VEINS OF 02:46:00 AM Medical Center bilateral lower BILATERAL LOWER EST extremities EXTREMITIES M54.9 Dorsalgia, DORSALGIA, Diagnosis 08/06/2019 [facility] unspecified UNSPECIFIED 02:46:[address] EST F10.10 Alcohol abuse, ALCOHOL ABUSE, Diagnosis 2019 [facility] uncomplicated UNCOMPLICATED 11:52:00 PM Medical Center EST Z00.00 Encounter for ENCNTR FOR GENERAL Diagnosis 2019 [facility] general adult ADULT MEDICAL EXAM 11:52:00 PM [facility] medical W/O ABNORMAL EST examination FINDINGS without abnormal findings Results ID Date Data Source [id number] 12/26/2019 11:30:00 AM EDT [facility] Name Value Range Interpretation Code Description Data Joy rce(s) Supporting Document(s ) SARS-COV-2 [facility] PCR This lab was ordered by [facility] and re ported by [facility]. ID Date Data Source [id number] 07/28/2019 12:10:00 AM [facility] 0 Name Value Range Interpretation Description Data Sup porting Code Source(s) Document(s ) Glucose NEGATIVE <content Saint [Mass/volume] styleCode="[facility] in Urine by d">Urine Medical Test strip Glucose Center </content>NEGA TIVE MG/DL<content styleCode="Jazzy lics"> (NEGATIVE MG/DL)</conten t> UNK CLEAR <content Saint styleCode="[facility] d">Urine Medical Clarity Center </content>GARRICK R <content styleCode="Jazzy lics"> (CLEAR )</content> Specific 1.015-1.02 Below low normal <content Saint gravity of 5 styleCode="Ashley Jeronimo Urine by Test d">Urine Medical strip Specific Center [place] </content><= 1.005 L<content styleCode="Jazzy lics"> (1.015-1.025 )</content> [...] Daily Smoker completed Daily Smoker [facility] 01:39:00 AM EDT Medical C [...] Interpretation Code Description Data Source(s) Body temperature 36.974322 36.262205 [facility] Respiratory rate 17 /min 17 /min [facility] Oxygen saturation 98 % 98 % [facility] blood [facility] by Pulse oximetry Heart rate 84 /min 84 /min [facility] Diastolic blood 83 mm[Hg] 83 mm[Hg] [facility] Systolic blood 129 mm[Hg] 129 mm[Hg] [facility] Body temperature 36.178067 36.581727 [facility] Respiratory rate 16 /min 16 /min [facility] Oxygen saturation 95 % 95 % [facility] blood [facility] by Pulse oximetry Heart rate 82 /min 82 /min [facility] Diastolic blood 76 mm[Hg] 76 mm[Hg] [facility] Systolic blood 134 mm[Hg] 134 mm[Hg] [facility] Body temperature 37.482326 37.424099 [facility] Respiratory rate 18 /min 18 /min [facility] Oxygen saturation 99 % 99 % [facility] blood [facility] by Pulse oximetry Heart rate 82 /min 82 /min [facility] Diastolic blood 88 mm[Hg] 88 mm[Hg] [facility] Systolic blood 134 mm[Hg] 134 mm[Hg] [facility] Body weight 77.464567 kg 77.393397 kg [facility] Body temperature 37.184916 37.049509 [facility] Respiratory rate 18 /min 18 /min [facility] Oxygen saturation 97 % 97 % [facility] Arterial blood [facility] by Pulse oximetry Heart rate 92 /min 92 /min [facility] Body height 172.732352 172.528846 cm [facility] Diastolic blood 97 mm[Hg] 97 mm[Hg] [facility] pressure [facility] Systolic blood 157 mm[Hg] 157 mm[Hg] [facility] pressure [facility] Body mass index 26.0 kg/m2 26.0 kg/m2 [facility] (BMI) [Ratio] [facility] Body temperature 37.485599 37.116129 [facility] Respiratory rate 17 /min 17 /min [facility] Oxygen saturation 95 % 95 % [facility] blood [facility] by Pulse oximetry Heart rate 71 /min 71 /min [facility] Diastolic blood 82 mm[Hg] 82 mm[Hg] [facility] Systolic blood 147 mm[Hg] 147 mm[Hg] [facility] pressure [facility]
[2020-04-02] MEDS: hydrOXYzine PAMOATE 25 MG CAPSULE (FP) PO SCH ×4 (11:38→23:58)
[2020-04-02] MEDS: LORazepam 2 MG TABLET PO SCH ×3 (11:38→23:57)
[2020-04-02] MEDS: NICOTINE 7 MG/24 HOURS TOPICAL PATCH TD SCH (11:43)
[2020-04-02] MEDS: PRENATAL VITAMINS W/ FOLIC ACID TABLET (FP) PO SCH (11:43)
[2020-04-02 13:17] LABS: HEMATOCRIT 43.2 % (35.4-49); HEMOGLOBIN 14.8 GM/dL (11.7-16.9); MCH 34.3 pg (25.7-33.7); MCHC 34.3 g/dl (32.0-35.9); MEAN CELL VOLUME 100.1 fl (80-96); MEAN PLT VOLUME 8.4 fl (7.5-11.1); PLATELET COUNT 132 K/MM3 (134-434); RBC 4.31 M/mm3 (4.00-5.60); RDW 13.3 % (11.9-15.9); WHITE BLOOD COUNT 4.9 K/mm3 (4.0-10.0)
[2020-04-02 13:26] LABS: ALBUMIN 4.1 g/dl (3.4-5.0); BILIRUBIN,TOTAL 0.5 mg/dL (0.2-1); BLOOD UREA NITROGEN 15.3 mg/dL (7-18); CREATININE 0.7 mg/dL (0.55-1.3); POTASSIUM 4.1 mmol/L (3.5-5.1); TOT PROT 8.5 g/dl (6.4-8.2)
[2020-04-02] MEDS: HYDROCORTISONE 0.5% TOPICAL CREAM 30 GM TUBE TP SCH ×2 (13:39→23:57)
[2020-04-02] MEDS: CLOTRIMAZOLE 1% CREAM 15 GM TUBE TP SCH ×2 (13:40→23:57)
[2020-04-02] MEDS: MELATONIN 5 MG TABLETS PO SCH (23:57)
[2020-04-02] MEDS: THIAMINE HCL 100 MG TABLET (FP) PO SCH (23:58)
[2020-04-03] MEDS: hydrOXYzine PAMOATE 25 MG CAPSULE (FP) PO SCH ×2 (06:42→10:34)
[2020-04-03] MEDS: LORazepam 2 MG TABLET PO SCH ×4 (06:42→23:19)
[2020-04-03] MEDS: PRENATAL VITAMINS W/ FOLIC ACID TABLET (FP) PO SCH (10:34)
[2020-04-03] MEDS: HYDROCORTISONE 0.5% TOPICAL CREAM 30 GM TUBE TP SCH ×2 (10:35→23:18)
[2020-04-03] MEDS: NICOTINE 7 MG/24 HOURS TOPICAL PATCH TD SCH (10:35)
[2020-04-03] MEDS: CLOTRIMAZOLE 1% CREAM 15 GM TUBE TP SCH ×2 (11:30→23:18)
[2020-04-03] MEDS ORDERED: hydrOXYzine PAMOATE 25 MG CAPSULE (FP) PO PRN (11:51)
--- NOTE | 2020-04-03 12:06 | PN ---
S CIWA - CIWA Score Nausea/Vomitin-No Nausea/No Vomiting Muscle Tremors: 2 Anxiety: 2 Agitation: 2 Paroxysmal Sweats: 2 Orientation: 0-Oriented Tacttile Disturbances: 0-None Auditory Disturbances: 0-None Visual Disturbances: 0-None Headache: 0-None Present CIWA-Ar Total Score: 8 [facility] Progress Note (SOAP) Subjective: sweats shakes body aches interrupted sleep Objective: 04/03/20 11:55 Vital Signs Temperature 98.0 F 04/03/20 09:15 Pulse Rate 123 H 04/03/20 09:15 Respiratory Rate 18 04/03/20 09:15 Blood Pressure 123/68 04/03/20 09:15 O2 Sat by Pulse Oximetry (%) 98 04/03/20 09:15 Laboratory Tests 04/02/20 04/02/20 04/02/20 09:30 09:30 09:30 WBC 4.9 RBC 4.31 Hgb 14.8 Hct 43.2 MCV 100.1 H MCH 34.3 H MCHC 34.3 RDW 13.3 Plt Count 132 L MPV 8.4 D Sodium 140 Potassium 4.1 Chloride 103 Carbon Dioxide 31 Anion Gap 6 L BUN 15.3 Creatinine 0.7 Est GFR (CKD-EPI)AfAm 110.82 Est GFR (CKD-EPI)NonAf 95.61 Random Glucose 117 H Calcium 9.0 Total Bilirubin 0.5 AST 131 H ALT 133 H Alkaline Phosphatase 132 H Total Protein 8.5 H Albumin 4.1 Syphilis Serology Non-reactive HIV Ag/Ab Combo Qual 04/02/20 13:00 WBC RBC Hgb Hct MCV MCH MCHC RDW Plt Count MPV Sodium Potassium Chloride Carbon Dioxide Anion Gap BUN Creatinine Est GFR (CKD-EPI)AfAm Est GFR (CKD-EPI)NonAf Random Glucose Calcium Total Bilirubin AST ALT Alkaline Phosphatase Total Protein Albumin Syphilis Serology HIV Ag/Ab Combo Qual Negative aaox3 ambulating no acute distress Assessment: 04/03/20 12:06 withdrawals skin assessed rash small red papules noted to left flank area only, pt states it sometimes itch. no other rash noted to other parts of body. Plan: continue detox increase fluids lidex cream ordered pt is off isolation order placed.
[2020-04-03] MEDS ORDERED: FLUOCINONIDE 0.05% CREAM (15 GM TUBE) TP SCH (14:00)
[2020-04-03] MEDS: FLUOCINONIDE 0.05% CREAM (15 GM TUBE) TP SCH ×3 (15:59→23:18)
[2020-04-03] MEDS: MELATONIN 5 MG TABLETS PO SCH (23:18)
[2020-04-03] MEDS: THIAMINE HCL 100 MG TABLET (FP) PO SCH (23:18)
[2020-04-04] MEDS: LORazepam 1 MG TABLET PO SCH ×4 (05:56→23:13)
[2020-04-04] MEDS: NICOTINE 7 MG/24 HOURS TOPICAL PATCH TD SCH (11:01)
[2020-04-04] MEDS: PRENATAL VITAMINS W/ FOLIC ACID TABLET (FP) PO SCH (11:01)
[2020-04-04] MEDS: FLUOCINONIDE 0.05% CREAM (15 GM TUBE) TP SCH ×4 (11:02→23:14)
[2020-04-04] MEDS: HYDROCORTISONE 0.5% TOPICAL CREAM 30 GM TUBE TP SCH ×2 (11:02→23:14)
[2020-04-04] MEDS: CLOTRIMAZOLE 1% CREAM 15 GM TUBE TP SCH ×2 (11:03→23:14)
--- NOTE | 2020-04-04 11:06 | PN ---
S CIWA - CIWA Score Nausea/Vomitin-No Nausea/No Vomiting Muscle Tremors: 2 Anxiety: 1-Mildly Anxious Agitation: 2 Paroxysmal Sweats: 2 Orientation: 0-Oriented Tacttile Disturbances: 0-None Auditory Disturbances: 0-None Visual Disturbances: 0-None Headache: 0-None Present CIWA-Ar Total Score: 7 BHS Progress Note (SOAP) Subjective: anxiety sweats interrupted sleep Objective: 04/04/20 11:05 Vital Signs Temperature 98.6 F 04/04/20 08:40 Pulse Rate 86 04/04/20 08:40 Respiratory Rate 19 04/04/20 08:40 Blood Pressure 120/69 04/04/20 08:40 O2 Sat by Pulse Oximetry (%) 98 04/04/20 08:40 Laboratory Tests 04/02/20 04/02/20 04/02/20 09:30 09:30 09:30 WBC 4.9 RBC 4.31 Hgb 14.8 Hct 43.2 MCV 100.1 H MCH 34.3 H MCHC 34.3 RDW 13.3 Plt Count 132 L MPV 8.4 D Sodium 140 Potassium 4.1 Chloride 103 Carbon Dioxide 31 Anion Gap 6 L BUN 15.3 Creatinine 0.7 Est GFR (CKD-EPI)AfAm 110.82 Est GFR (CKD-EPI)NonAf 95.61 Random Glucose 117 H Calcium 9.0 Total Bilirubin 0.5 AST 131 H ALT 133 H Alkaline Phosphatase 132 H Total Protein 8.5 H Albumin 4.1 Syphilis Serology Non-reactive COVID-19 (WILL) HIV Ag/Ab Combo Qual 04/02/20 04/02/20 09:30 13:00 WBC RBC Hgb Hct MCV MCH MCHC RDW Plt Count MPV Sodium Potassium Chloride Carbon Dioxide Anion Gap BUN Creatinine Est GFR (CKD-EPI)AfAm Est GFR (CKD-EPI)NonAf Random Glucose Calcium Total Bilirubin AST ALT Alkaline Phosphatase Total Protein Albumin Syphilis Serology COVID-19 (WILL) Not detected HIV Ag/Ab Combo Qual Negative repeat cbc aaox3 ambulating no acute distress Assessment: 04/04/20 11:06 withdrawals Plan: continue detox
[2020-04-04] MEDS ORDERED: MASKS NR ONE (11:24)
[2020-04-04] MEDS: THIAMINE HCL 100 MG TABLET (FP) PO SCH (23:13)
[2020-04-04] MEDS: MELATONIN 5 MG TABLETS PO SCH (23:15)
[2020-04-05] MEDS ORDERED: LORazepam 0.5 MG TABLET PO PRN
[2020-04-05] MEDS: LORazepam 0.5 MG TABLET PO SCH ×4 (05:37→22:38)
[2020-04-05] MEDS: NICOTINE 7 MG/24 HOURS TOPICAL PATCH TD SCH (10:16)
[2020-04-05] MEDS: PRENATAL VITAMINS W/ FOLIC ACID TABLET (FP) PO SCH (10:16)
[2020-04-05 11:48] LABS: BASO % 0.7 % (0-2.0); EOS % 3.5 % (0-4.5); HEMATOCRIT 40.6 % (35.4-49); HEMOGLOBIN 13.7 GM/dL (11.7-16.9); LYMPH % 32.6 % (8-40); MCH 33.4 pg (25.7-33.7); MCHC 33.6 g/dl (32.0-35.9); MEAN CELL VOLUME 99.3 fl (80-96); MEAN PLT VOLUME 8.5 fl (7.5-11.1); MONO % 11.8 % (3.8-10.2); NEUT % 51.4 % (42.8-82.8); PLATELET COUNT 122 K/MM3 (134-434); RBC 4.09 M/mm3 (4.00-5.60); RDW 13.4 % (11.9-15.9); WHITE BLOOD COUNT 3.9 K/mm3 (4.0-10.0)
[2020-04-05 11:59] LABS: ALBUMIN 3.4 g/dl (3.4-5.0); BLOOD UREA NITROGEN 11.8 mg/dL (7-18); CALCIUM 9.4 mg/dL (8.5-10.1); CREATININE 0.8 mg/dL (0.55-1.3); POTASSIUM 4.1 mmol/L (3.5-5.1)
[2020-04-05] MEDS: CLOTRIMAZOLE 1% CREAM 15 GM TUBE TP SCH ×2 (12:01→22:39)
[2020-04-05] MEDS: FLUOCINONIDE 0.05% CREAM (15 GM TUBE) TP SCH ×4 (12:01→22:39)
[2020-04-05] MEDS: HYDROCORTISONE 0.5% TOPICAL CREAM 30 GM TUBE TP SCH ×2 (12:01→22:39)
--- NOTE | 2020-04-05 14:50 | PN ---
S CIWA - CIWA Score Nausea/Vomitin-No Nausea/No Vomiting Muscle Tremors: None Anxiety: 2 Agitation: 3 Paroxysmal Sweats: No Perspiration Orientation: 0-Oriented Tacttile Disturbances: 0-None Auditory Disturbances: 0-None Visual Disturbances: 0-None Headache: 0-None Present CIWA-Ar Total Score: 5 BHS Progress Note (SOAP) Subjective: Anxious, Restless. Patient reports that above symptoms are mild in degree at this time and that he feels well overall. Objective: Patient A & O X 3, Observed Ambulating on Detox Unit Unassisted. In No Acute Distress. 04/05/20 14:46 Vital Signs Temperature 98.1 F 04/05/20 12:34 Pulse Rate 82 04/05/20 12:34 Respiratory Rate 18 04/05/20 12:34 Blood Pressure 138/84 04/05/20 12:34 O2 Sat by Pulse Oximetry (%) 95 04/05/20 12:34 Laboratory Tests 04/02/20 04/02/20 04/02/20 09:30 09:30 09:30 WBC 4.9 RBC 4.31 Hgb 14.8 Hct 43.2 MCV 100.1 H MCH 34.3 H MCHC 34.3 RDW 13.3 Plt Count 132 L MPV 8.4 D Absolute Neuts (auto) Neutrophils % Lymphocytes % Monocytes % Eosinophils % Basophils % Nucleated RBC % Sodium 140 Potassium 4.1 Chloride 103 Carbon Dioxide 31 Anion Gap 6 L BUN 15.3 Creatinine 0.7 Est GFR (CKD-EPI)AfAm 110.82 Est GFR (CKD-EPI)NonAf 95.61 Random Glucose 117 H Calcium 9.0 Total Bilirubin 0.5 AST 131 H ALT 133 H Alkaline Phosphatase 132 H Total Protein 8.5 H Albumin 4.1 Syphilis Serology Non-reactive COVID-19 (WILL) HIV Ag/Ab Combo Qual 04/02/20 04/02/20 04/05/20 09:30 13:00 07:50 WBC 3.9 L RBC 4.09 Hgb 13.7 Hct 40.6 MCV 99.3 H MCH 33.4 MCHC 33.6 RDW 13.4 Plt Count 122 L MPV 8.5 Absolute Neuts (auto) 2.0 Neutrophils % 51.4 D Lymphocytes % 32.6 D Monocytes % 11.8 H Eosinophils % 3.5 Basophils % 0.7 Nucleated RBC % 0 Sodium Potassium Chloride Carbon Dioxide Anion Gap BUN Creatinine Est GFR (CKD-EPI)AfAm Est GFR (CKD-EPI)NonAf Random Glucose Calcium Total Bilirubin AST ALT Alkaline Phosphatase Total Protein Albumin Syphilis Serology COVID-19 (WILL) Not detected HIV Ag/Ab Combo Qual Negative 04/05/20 07:50 WBC RBC Hgb Hct MCV MCH MCHC RDW Plt Count MPV Absolute Neuts (auto) Neutrophils % Lymphocytes % Monocytes % Eosinophils % Basophils % Nucleated RBC % Sodium 140 Potassium 4.1 Chloride 104 Carbon Dioxide 31 Anion Gap 5 L BUN 11.8 Creatinine 0.8 Est GFR (CKD-EPI)AfAm 104.90 Est GFR (CKD-EPI)NonAf 90.51 Random Glucose 147 H Calcium 9.4 Total Bilirubin 1.0 AST 117 H ALT 116 H Alkaline Phosphatase 104 Total Protein 7.0 Albumin 3.4 Syphilis Serology COVID-19 (WILL) HIV Ag/Ab Combo Qual Lab results noted. Results of Repeat CBC and CMP noted. Reduction in MCV and in MCH noted; however, Platelet level slightly lower (122) on Admission Laboratory Assessment. Reductions in AST, ALT, and in Alkaline Phosphatase levels noted. Random Glucose level elevated on Admission and on Repeat Assessment (147) 04/05/20 14:47 Assessment: 04/05/20 14:50 WITHDRAWAL SYMPTOMS. THROMBOCYTOPENIA. HYPERGLYCEMIA. ELEVATED AST AND ALT LEVELS. 04/05/20 14:51 Plan: Continue Detox. Increase Daily Oral Water Intake. Patient advised to follow-up with DIRECTOR OF PHARMACY after Discharge from Detox for Low Platelet level, for elevated Glucose level, and for elevated liver enzymes noted on detox admission laboratory assessment. Patient verbalized understanding of recommendation. Copies of results of all labs drawn while admitted for detox given to patient at time of discharge from detox unit.
[2020-04-05] MEDS: THIAMINE HCL 100 MG TABLET (FP) PO SCH (22:38)
[2020-04-05] MEDS: MELATONIN 5 MG TABLETS PO SCH (22:39)
[2020-04-06] MEDS ORDERED: LORazepam 0.5 MG TABLET PO ONE (05:00)
[2020-04-06 09:13] VITALS: BP 142/97; PULSE 81; TEMP 97.7
--- NOTE | 2020-04-06 09:26 | DS ---
[facility] Detox Discharge Summary Admission Date: 04/02/20 Discharge Date: 04/06/20 - History Present History: Alcohol Dependence Additional Comments: Alert and oriented x3, in no acute respiratory distress. Full ROM, ambulatory in the unit without assistance. Skin warm to touch. Detox protocol completed without any complications, stable for discharge this morning. Pertinent Past History: History of PVD, stasis Dermatitis, left 4th toe amputation, alcohol and nicotine use disorder. - Physical Exam Results Vital Signs: Vital Signs Temperature 97.7 F 04/06/20 08:33 Pulse Rate 81 04/06/20 08:33 Respiratory Rate 18 04/06/20 08:33 Blood Pressure 142/97 04/06/20 08:33 O2 Sat by Pulse Oximetry (%) 96 04/06/20 08:33 Vital Signs 04/06/20 04/06/20 05:13 08:33 Temperature 96.8 F L 97.7 F Pulse Rate 59 L 81 Respiratory 16 18 Rate Blood Pressure 135/78 142/97 O2 Sat by Pulse 96 96 Oximetry (%) Laboratory Last Values WBC 3.9 K/mm3 (4.0-10.0) L 04/05/20 07:50 RBC 4.09 M/mm3 (4.00-5.60) 04/05/20 07:50 Hgb 13.7 GM/dL (11.7-16.9) 04/05/20 07:50 Hct 40.6 % (35.4-49) 04/05/20 07:50 MCV 99.3 fl (80-96) H 04/05/20 07:50 MCH 33.4 pg (25.7-33.7) 04/05/20 07:50 MCHC 33.6 g/dl (32.0-35.9) 04/05/20 07:50 RDW 13.4 % (11.9-15.9) 04/05/20 07:50 Plt Count 122 K/MM3 (134-434) L 04/05/20 07:50 MPV 8.5 fl (7.5-11.1) 04/05/20 07:50 Absolute Neuts (auto) 2.0 K/mm3 (1.5-8.0) 04/05/20 07:50 Neutrophils % 51.4 % (42.8-82.8) D 04/05/20 07:50 Lymphocytes % 32.6 % (8-40) D 04/05/20 07:50 Monocytes % 11.8 % (3.8-10.2) H 04/05/20 07:50 Eosinophils % 3.5 % (0-4.5) 04/05/20 07:50 Basophils % 0.7 % (0-2.0) 04/05/20 07:50 Nucleated RBC % 0 % (0-0) 04/05/20 07:50 Sodium 140 mmol/L (136-145) 04/05/20 07:50 Potassium 4.1 mmol/L (3.5-5.1) 04/05/20 07:50 Chloride 104 mmol/L (98-107) 04/05/20 07:50 Carbon Dioxide 31 mmol/L (21-32) 04/05/20 07:50 Anion Gap 5 MMOL/L (8-16) L 04/05/20 07:50 BUN 11.8 mg/dL (7-18) 04/05/20 07:50 Creatinine 0.8 mg/dL (0.55-1.3) 04/05/20 07:50 Est GFR (CKD-EPI)AfAm 104.90 04/05/20 07:50 Est GFR (CKD-EPI)NonAf 90.51 04/05/20 07:50 Random Glucose 147 mg/dL (74-106) H 04/05/20 07:50 Calcium 9.4 mg/dL (8.5-10.1) 04/05/20 07:50 Total Bilirubin 1.0 mg/dL (0.2-1) 04/05/20 07:50 AST 117 U/L (15-37) H 04/05/20 07:50 ALT 116 U/L (13-61) H 04/05/20 07:50 Alkaline Phosphatase 104 U/L (45-117) 04/05/20 07:50 Total Protein 7.0 g/dl (6.4-8.2) 04/05/20 07:50 Albumin 3.4 g/dl (3.4-5.0) 04/05/20 07:50 Syphilis Serology Non-reactive (NONREACTIVE) 04/02/20 09:30 COVID-19 (WILL) Not detected (Not Detected) 04/02/20 09:30 HIV Ag/Ab Combo Qual Negative (NEGATIVE) 04/02/20 13:00 Labs noted. Pertinent Admission Physical Exam Findings: Withdrawal symptoms. - Treatment Hospital Course: Detox Protocol Followed, Detoxed Safely, Responded well, Discharged Condition Good - Medication Discharge Medications: Ambulatory Orders Clotrimazole 1 applic TP BID 10/29/18 Hydrocortisone 0.5% Ointment [Hytone 0.5% Ointment -] 1 applic TP BID 10/26/19 - Diagnosis (1) Alcohol dependence with uncomplicated withdrawal Current Visit: No Status: Acute (2) Elevated liver function tests Current Visit: No Status: Chronic (3) Nicotine dependence, uncomplicated Current Visit: No Status: Chronic Qualifiers: Nicotine product type: cigarettes Qualified Code(s): F17.210 - Nicotine dependence, cigarettes, uncomplicated (4) Stasis dermatitis Current Visit: No Status: Chronic - AMA Did Patient Leave Against Medical Advice: No
== END 2020-04-06 09:44 | disposition home or self-care (01) | DRG 897 ==
LOC: YASAS 08:28 → Y6N 10:12
PROVIDERS: ADMIT Allergy & Immunology; ATTEND Allergy & Immunology
PROC: HZ2ZZZZ Detoxification Services for Substance Abuse Treatment (ICD-10-PCS; principal; 2020-04-02)
DX: F10.230 Alcohol dependence with withdrawal, uncomplicated (principal); F17.210 Nicotine dependence, cigarettes, uncomplicated; F32.9 Major depressive disorder, single episode, unspecified; D69.6 Thrombocytopenia, unspecified; I73.9 Peripheral vascular disease, unspecified; I87.2 Venous insufficiency (chronic) (peripheral); R94.5 Abnormal results of liver function studies; R73.9 Hyperglycemia, unspecified; Z89.422 Acquired absence of other left toe(s); Z59.0 Homelessness
CPT/HCPCS: 36415; 80053; 85025; 85027; 86780; 87389; U0003

== ENCOUNTER 2020-05-20 20:39 | Inpatient (IN) | payer OTHER ==
[2020-05-20] MEDS ORDERED: METHOCARBAMOL 500 MG TABLET PO PRN (21:24)
[2020-05-20] MEDS ORDERED: BISMUTH SUBSALICYLATE 524 MG/30 ML UD PO PRN (21:24)
[2020-05-20] MEDS ORDERED: hydrOXYzine PAMOATE 25 MG CAPSULE (FP) PO PRN (21:24)
[2020-05-20] MEDS ORDERED: guaiFENesin 200 MG/10 ML 10 ML UNIT-DOSE CUPS PO PRN (21:24)
[2020-05-20] MEDS ORDERED: MAGNESIUM HYDROX 2400MG/30ML ORAL SUSPENSION 30 ML CUP PO PRN (21:24)
[2020-05-20] MEDS ORDERED: P-EPHED 60MG/TRIPROLIDI 2.5MG TABLET PO PRN (21:24)
[2020-05-20] MEDS ORDERED: ACETAMINOPHEN 325 MG TABLET (FP) PO PRN ×2 (21:24)
[2020-05-20] MEDS ORDERED: MAG HYDROX/AL HYDROX/SIMETH 30 ML UNIT-DOSE CUP PO PRN (21:24)
[2020-05-20] MEDS ORDERED: ONDANSETRON *ODT* 4 MG TABLET SL PRN (21:24)
[2020-05-20] MEDS ORDERED: MENTHOL/PHENOL 1 EACH UD MM PRN (21:24)
[2020-05-20] MEDS ORDERED: MAGNESIUM CITRATE 300 ML BOTTLE PO PRN (21:24)
[2020-05-20] MEDS ORDERED: NICOTINE POLACRILEX 2 MG GUM BUC PRN (21:24)
[2020-05-20] MEDS ORDERED: LORazepam 1 MG TABLET PO PRN (21:24)
[2020-05-20] MEDS ORDERED: IBUPROFEN 400 MG TABLET (FP) PO PRN (21:24)
[2020-05-20 22:29] VITALS: BMI 26.6
[2020-05-20] MEDS: LORazepam 2 MG TABLET PO SCH (23:06)
[2020-05-20] MEDS: THIAMINE HCL 100 MG TABLET (FP) PO SCH (23:06)
[2020-05-20] MEDS: MELATONIN 5 MG TABLETS PO SCH (23:06)
[2020-05-21] MEDS: LORazepam 2 MG TABLET PO SCH ×4 (05:28→22:13)
[2020-05-21 09:59] LABS: HEMATOCRIT 40.7 % (35.4-49); HEMOGLOBIN 13.4 GM/dL (11.7-16.9); MCH 32.8 pg (25.7-33.7); MEAN CELL VOLUME 99.4 fl (80-96); MEAN PLT VOLUME 8.4 fl (7.5-11.1); PLATELET COUNT 121 K/MM3 (134-434); RBC 4.09 M/mm3 (4.00-5.60); RDW 13.8 % (11.9-15.9); WHITE BLOOD COUNT 3.1 K/mm3 (4.0-10.0)
[2020-05-21 10:17] LABS: ALBUMIN 3.6 g/dl (3.4-5.0); BLOOD UREA NITROGEN 14.6 mg/dL (7-18); CALCIUM 9.1 mg/dL (8.5-10.1)
[2020-05-21 10:20] LABS: CREATININE 0.8 mg/dL (0.55-1.3)
[2020-05-21 10:22] LABS: BILIRUBIN,TOTAL 0.9 mg/dL (0.2-1); TOT PROT 7.1 g/dl (6.4-8.2)
[2020-05-21] MEDS: PRENATAL VITAMINS W/ FOLIC ACID TABLET (FP) PO SCH (11:06)
[2020-05-21] MEDS: NICOTINE 21 MG/24 HOURS TOPICAL PATCH TD SCH (11:06)
[2020-05-21] MEDS: MELATONIN 5 MG TABLETS PO SCH (22:13)
[2020-05-21] MEDS: THIAMINE HCL 100 MG TABLET (FP) PO SCH (22:13)
[2020-05-22] MEDS: LORazepam 1 MG TABLET PO SCH ×4 (05:42→22:34)
[2020-05-22 10:18] LABS: HEMOGLOBIN 14.6 GM/dL (11.7-16.9); MCHC 33.2 g/dl (32.0-35.9); MEAN CELL VOLUME 99.4 fl (80-96); MEAN PLT VOLUME 8.7 fl (7.5-11.1); PLATELET COUNT 129 K/MM3 (134-434); RBC 4.43 M/mm3 (4.00-5.60); WHITE BLOOD COUNT 3.5 K/mm3 (4.0-10.0)
[2020-05-22] MEDS: PRENATAL VITAMINS W/ FOLIC ACID TABLET (FP) PO SCH (10:25)
[2020-05-22] MEDS: NICOTINE 21 MG/24 HOURS TOPICAL PATCH TD SCH (10:25)
[2020-05-22 10:28] LABS: INR 1.02 (0.83-1.09); PROTHROMBIN TIME (PATIENT) 12.3 SEC (9.7-13.0)
[2020-05-22 10:41] LABS: POTASSIUM 3.8 mmol/L (3.5-5.1)
[2020-05-22 10:45] LABS: ALBUMIN 3.4 g/dl (3.4-5.0)
[2020-05-22 10:46] LABS: BLOOD UREA NITROGEN 12.5 mg/dL (7-18); CALCIUM 9.2 mg/dL (8.5-10.1)
[2020-05-22 10:49] LABS: CREATININE 0.8 mg/dL (0.55-1.3)
[2020-05-22 10:50] LABS: BILIRUBIN,TOTAL 0.7 mg/dL (0.2-1)
[2020-05-22 10:53] LABS: TOT PROT 7.1 g/dl (6.4-8.2)
[2020-05-22] MEDS: CLOTRIMAZOLE 1% CREAM 15 GM TUBE TP SCH ×2 (12:22→22:34)
[2020-05-22] MEDS: THIAMINE HCL 100 MG TABLET (FP) PO SCH (22:33)
[2020-05-22] MEDS: MELATONIN 5 MG TABLETS PO SCH (22:34)
[2020-05-23] MEDS ORDERED: LORazepam 0.5 MG TABLET PO PRN
[2020-05-23] MEDS: LORazepam 0.5 MG TABLET PO SCH ×4 (05:47→22:19)
[2020-05-23] MEDS: CLOTRIMAZOLE 1% CREAM 15 GM TUBE TP SCH ×2 (10:38→22:19)
[2020-05-23] MEDS: PRENATAL VITAMINS W/ FOLIC ACID TABLET (FP) PO SCH (10:38)
[2020-05-23] MEDS: NICOTINE 21 MG/24 HOURS TOPICAL PATCH TD SCH (10:39)
[2020-05-23] MEDS: HYDROCORTISONE 0.5% TOPICAL CREAM 30 GM TUBE TP SCH ×2 (11:58→22:19)
[2020-05-23] MEDS: THIAMINE HCL 100 MG TABLET (FP) PO SCH (22:19)
[2020-05-23] MEDS: MELATONIN 5 MG TABLETS PO SCH (22:19)
[2020-05-24] MEDS ORDERED: LORazepam 0.5 MG TABLET PO ONE (05:00)
[2020-05-24 09:33] VITALS: BP 138/82; PULSE 64; TEMP 98.5
[2020-05-24] MEDS: PRENATAL VITAMINS W/ FOLIC ACID TABLET (FP) PO SCH (10:54)
[2020-05-24] MEDS: HYDROCORTISONE 0.5% TOPICAL CREAM 30 GM TUBE TP SCH (10:54)
[2020-05-24] MEDS: NICOTINE 21 MG/24 HOURS TOPICAL PATCH TD SCH (10:54)
[2020-05-24] MEDS: CLOTRIMAZOLE 1% CREAM 15 GM TUBE TP SCH (10:54)
== END 2020-05-24 11:50 | disposition home or self-care (01) | DRG 897 ==
LOC: YASAS 20:39 → Y6N 21:51
PROVIDERS: ADMIT Allergy & Immunology; ATTEND Allergy & Immunology
PROC: HZ2ZZZZ Detoxification Services for Substance Abuse Treatment (ICD-10-PCS; principal; 2020-05-20)
DX: F10.230 Alcohol dependence with withdrawal, uncomplicated (principal); F10.96 Alcohol use, unspecified with alcohol-induced persisting amnestic disorder; F17.210 Nicotine dependence, cigarettes, uncomplicated; F41.9 Anxiety disorder, unspecified; F32.9 Major depressive disorder, single episode, unspecified; I10 Essential (primary) hypertension; L25.9 Unspecified contact dermatitis, unspecified cause; L85.3 Xerosis cutis; B35.3 Tinea pedis; R68.2 Dry mouth, unspecified; R63.8 Other symptoms and signs concerning food and fluid intake; Z89.422 Acquired absence of other left toe(s); Z99.89 Dependence on other enabling machines and devices; Z59.0 Homelessness
CPT/HCPCS: 36415; 80053; 85027; 85610; 86780; C9803; U0003